=== PATIENT | female | born 1975 | race Caucasian/White ===

== ENCOUNTER 2019-12-06 13:13 | Outpatient (REF) | payer OTHER, SELFPAY ==
[2019-12-07 08:56] LABS: CT PCR NOT DETECTED (Not Detect.); NG PCR NOT DETECTED (Not Detect.)
[2019-12-11 20:11] LABS: HPV mRNA E6/E7 Not Detected (Not Detected)
== END 2019-12-06 13:14 | disposition home or self-care (01) ==
LOC: HO.LNP 13:13
PROVIDERS: Visit Provider Obstetrics & Gynecology
DX: Z01.419 Encounter for gynecological examination (general) (routine) without abnormal findings (principal); Z11.51 Encounter for screening for human papillomavirus (HPV); Z11.3 Encounter for screening for infections with a predominantly sexual mode of transmission; N92.1 Excessive and frequent menstruation with irregular cycle
CPT/HCPCS: 87491; 87591; 87624; 87625; 88142

== ENCOUNTER 2019-12-31 16:18 | Outpatient (REF) | payer OTHER, SELFPAY | END 2019-12-31 16:19 | disposition home or self-care (01) | LOC: HO.LAB 16:18 | PROVIDERS: Visit Provider Internal Medicine | DX: Z20.828 Contact with and (suspected) exposure to other viral communicable diseases (principal) | CPT/HCPCS: C9803; U0003 ==

== ENCOUNTER → 2020-06-16 08:36 | Outpatient (BNVA) | payer OTHER, SELFPAY | PROVIDERS: PCP Hospitalist; Visit Provider Nurse Practitioner ==

== ENCOUNTER 2020-06-23 09:26 | Outpatient (REF) | payer OTHER, SELFPAY ==
[2020-06-23 11:41] LABS: Hematocrit 32.8 % (37-47); Hemoglobin 10.1 g/dl (12.0-16.0); Mean Corpuscular HGB Conc 30.8 g/dl (31.0-35.0); Mean Corpuscular Hemoglobin 24.2 pg (27.0-33.0); Mean Corpuscular Volume 78.7 fL (80-98); Mean Platelet Volume 11.5 fL (9.4-12.3); Platelet Count 265 X10*3/uL (160-400); Red Blood Count 4.17 X10*6/uL (4.20-5.50); Red Cell Distribution Width 19.8 % (11.0-16.0); White Blood Count 8.4 X10*3/uL (4.8-10.8)
[2020-06-23 12:25] LABS: HCG Quantitative < 2 mIU/mL; TSH reflex Free T4 0.46 uIU/mL (0.32-4.0)
[2020-06-24 06:01] LABS: CT PCR NOT DETECTED (Not Detect.); NG PCR NOT DETECTED (Not Detect.)
== END 2020-06-23 09:27 | disposition home or self-care (01) ==
LOC: HO.LAB 09:26
PROVIDERS: PCP Hospitalist; Visit Provider Obstetrics & Gynecology
DX: N92.1 Excessive and frequent menstruation with irregular cycle (principal); J30.1 Allergic rhinitis due to pollen; F17.210 Nicotine dependence, cigarettes, uncomplicated
CPT/HCPCS: 36415; 58100; 84443; 84702; 85027; 87491; 87591; 88305

== ENCOUNTER 2020-06-26 15:51 | Outpatient (REF) | payer OTHER, SELFPAY ==
[2020-06-26 17:30] LABS: Glucose Urine UA NEG (NEG); Leukocyte Esterase Urine NEG (NEG); Nitrite Urine NEG (NEG); Urine Blood NEG (NEG); Urine Ketones NEG (NEG); Urine Protein NEG (NEG-TRACE)
[2020-06-26 17:32] LABS: Appearance Urine CLEAR; Color Urine YELLOW
== END 2020-06-26 15:52 | disposition home or self-care (01) ==
LOC: HO.LAB 15:51
PROVIDERS: PCP Hospitalist; Visit Provider Family Medicine
DX: R30.0 Dysuria (principal)
CPT/HCPCS: 81003

== ENCOUNTER 2020-07-02 15:18 | Outpatient (REF) | payer OTHER, SELFPAY ==
--- NOTE | ~2020-07-02 | US_ITS ---
EXAMINATION: PELVIC ULTRASOUND CLINICAL INFORMATION: Excessive and frequent menstruation. Post endometrial biopsy 06/23/2020. COMPARISON: Previous pelvic ultrasound report January 2013. TECHNIQUE: Transabdominal and transvaginal pelvic ultrasound. Transvaginal exam was performed for better visualization of the uterus and ovaries. FINDINGS: The uterus is anteverted, enlarged and measures 13.1 x 8.7 x 10.3 cm in dimension. There is an 8.4 x 7.8 x 7 cm slightly hyperechoic area in the right upper uterine body. This obscures the endometrium. This has several small cystic areas. Adenomyosis, submucosal uterine fibroid and endometrial thickening should be considered. There is a small 9 x 7 x 10 mm hypoechoic lesion in the anterior uterine body suggestive of a small fibroid. The endometrium is not well visualized. The cervix is normal appearing. The right ovary is not seen. The left ovary is seen transabdominally only and is enlarged measuring 5.1 x 3.7 x 3.6 cm. There are 2 left ovarian cysts measuring 3.1 x 2.7 x 3.2 cm and 2.3 x 2.2 x 2.1 cm. There is no fluid in the pelvis. US/US transvaginal IMPRESSION: Enlarged uterus. Large hyperechoic area with small cysts centrally in the right side of the uterus. The endometrium is not well visualized. Differential would include adenomyosis, submucosal uterine fibroid and endometrial thickening. This could be better evaluated with pelvic MRI if clinically indicated. Small anterior uterine body fibroid. Right ovary not seen. Slightly enlarged left ovary with 2 cysts, largest measuring 3 cm.
--- NOTE | ~2020-07-02 | US_ITS ---
EXAMINATION: PELVIC ULTRASOUND CLINICAL INFORMATION: Excessive and frequent menstruation. Post endometrial biopsy 06/23/2020. COMPARISON: Previous pelvic ultrasound report January 2013. TECHNIQUE: Transabdominal and transvaginal pelvic ultrasound. Transvaginal exam was performed for better visualization of the uterus and ovaries. FINDINGS: The uterus is anteverted, enlarged and measures 13.1 x 8.7 x 10.3 cm in dimension. There is an 8.4 x 7.8 x 7 cm slightly hyperechoic area in the right upper uterine body. This obscures the endometrium. This has several small cystic areas. Adenomyosis, submucosal uterine fibroid and endometrial thickening should be considered. There is a small 9 x 7 x 10 mm hypoechoic lesion in the anterior uterine body suggestive of a small fibroid. The endometrium is not well visualized. The cervix is normal appearing. The right ovary is not seen. The left ovary is seen transabdominally only and is enlarged measuring 5.1 x 3.7 x 3.6 cm. There are 2 left ovarian cysts measuring 3.1 x 2.7 x 3.2 cm and 2.3 x 2.2 x 2.1 cm. There is no fluid in the pelvis. US/US pelvic complete IMPRESSION: Enlarged uterus. Large hyperechoic area with small cysts centrally in the right side of the uterus. The endometrium is not well visualized. Differential would include adenomyosis, submucosal uterine fibroid and endometrial thickening. This could be better evaluated with pelvic MRI if clinically indicated. Small anterior uterine body fibroid. Right ovary not seen. Slightly enlarged left ovary with 2 cysts, largest measuring 3 cm.
== END 2020-07-02 15:19 | disposition home or self-care (01) ==
LOC: HO.US 15:18
PROVIDERS: Visit Provider Obstetrics & Gynecology
DX: N92.1 Excessive and frequent menstruation with irregular cycle (principal)
CPT/HCPCS: 76830; 76856

== ENCOUNTER → 2020-07-07 13:56 | Outpatient (BNVA) | payer OTHER, SELFPAY | PROVIDERS: Visit Provider Obstetrics & Gynecology ==

== ENCOUNTER 2020-07-08 11:00 | Outpatient (REF) | payer OTHER, SELFPAY ==
[2020-07-09 12:06] LABS: CT PCR NOT DETECTED (Not Detect.); NG PCR NOT DETECTED (Not Detect.)
== END 2020-07-08 11:01 | disposition home or self-care (01) ==
LOC: HO.LAB 11:00
PROVIDERS: Visit Provider Obstetrics & Gynecology
DX: N71.9 Inflammatory disease of uterus, unspecified (principal); R10.2 Pelvic and perineal pain; F17.210 Nicotine dependence, cigarettes, uncomplicated; J30.1 Allergic rhinitis due to pollen; Z98.51 Tubal ligation status
CPT/HCPCS: 87491; 87591; 99212

== ENCOUNTER 2020-07-10 16:40 | Outpatient (REF) | payer OTHER, SELFPAY | END 2020-07-10 16:41 | disposition home or self-care (01) | LOC: HO.LAB 16:40 | PROVIDERS: PCP Hospitalist; Visit Provider Obstetrics & Gynecology | DX: N30.90 Cystitis, unspecified without hematuria (principal) | CPT/HCPCS: 87086 ==

== ENCOUNTER → 2020-07-15 13:57 | Outpatient (BNVA) | payer OTHER, SELFPAY | PROVIDERS: Visit Provider Obstetrics & Gynecology | DX: N30.90 Cystitis, unspecified without hematuria (principal); N71.9 Inflammatory disease of uterus, unspecified | CPT/HCPCS: 99212 ==

== ENCOUNTER 2020-08-21 16:23 | Outpatient (REF) | payer OTHER, SELFPAY ==
--- NOTE | ~2020-08-21 | MM_ITS ---
EXAMINATION: MM BREAST SCREENING DIGITAL TOMOSYNTHESIS, BILATERAL CLINICAL INFORMATION: Screening. Asymptomatic. The lifetime risk of breast cancer based on the Tyrer-Cuzick Model is 13.8%. COMPARISON: Mammography: None TECHNIQUE: Digital breast tomosynthesis is performed in both the craniocaudal and mediolateral oblique views along with computer-aided detection (CAD). Synthesized 2D images are generated from the tomosynthesis. FINDINGS: There are scattered areas of fibroglandular density (ACR BI-RADS breast composition Category b). About the deep medial aspect of the right breast, there is an irregularly marginated density measuring approximately 8 x 4 mm in size and lying approximately 10 cm from the nipple. About the superior retroareolar region of the right breast, there is a 9 mm partially circumscribed density containing a few calcifications. No left breast abnormality is appreciated. MM/MM tomosynthesis screening BI IMPRESSION: There are 2 right breast densities as described for which spot compression views and possible ultrasound is recommended. Spot magnification films in craniocaudal and 90 degree mediolateral views of the calcifications of the more anterior lesion suggested. ASSESSMENT: BI-RADS 0: Incomplete - Need Additional Imaging Evaluation RECOMMENDATION: 1. Additional views of the right breast 2. Targeted ultrasound if warranted after review of the additional views. 3. Radiology department staff will contact the patient for additional imaging. This patient's information was entered into a reminder system with a target due date for their next mammogram.
== END 2020-08-21 16:24 | disposition home or self-care (01) ==
LOC: HO.MAMMO 16:23
PROVIDERS: Visit Provider Obstetrics & Gynecology
DX: Z12.31 Encounter for screening mammogram for malignant neoplasm of breast (principal)
CPT/HCPCS: 77063; 77067

== ENCOUNTER 2020-09-11 14:00 | Outpatient (REF) | payer OTHER, SELFPAY ==
--- NOTE | ~2020-09-11 | MM_ITS ---
EXAMINATION: MM DIAGNOSTIC DIGITAL BREAST TOMOSYNTHESIS, RIGHT CLINICAL INFORMATION: Recall from baseline mammography for 2 findings right breast: Asymmetric density posterior medial quadrant and fine calcifications anterior upper breast. Prior history bilateral reduction mammoplasty over 15 years ago. COMPARISON: Mammography: 08/21/2020 TECHNIQUE: Digital breast tomosynthesis is performed. 2D images are generated from the tomosynthesis. The following views are obtained: Magnification CC and ML x3; rolled right CC and spot right CC views. FINDINGS: There are scattered areas of fibroglandular density (ACR BI-RADS breast composition Category b). The additional views show scattered calcifications in the right breast likely related to the reduction mammoplasty. There are fine grouped calcifications anterior central breast on the magnification CC view without correlate demonstrated on the MLO views. The asymmetric density posterior medial breast is less conspicuous. No spiculation. Results are discussed with the patient at time of visit. Findings are probably benign. Diagnostic right mammography is recommended in 6 months for both areas of recall and to include magnification views. MM/MM tomosynthesis added views R IMPRESSION: Probable benign findings right breast, possibly related to remote prior mammoplasty. ASSESSMENT: BI-RADS 3: Probably Benign RECOMMENDATION: Diagnostic right mammography in 6 months. This patient's information was entered into a reminder system with a target due date for their next mammogram.
== END 2020-09-11 14:01 | disposition home or self-care (01) ==
LOC: HO.MAMMO 14:00
PROVIDERS: Visit Provider Obstetrics & Gynecology
DX: R92.2 Inconclusive mammogram (principal)
CPT/HCPCS: 77061; 77065

== ENCOUNTER → 2020-10-06 12:05 | Outpatient (BNVA) | payer OTHER, SELFPAY | PROVIDERS: PCP Physician Assistant; Visit Provider Obstetrics & Gynecology ==

== ENCOUNTER → 2020-10-20 12:55 | Outpatient (BNVA) | payer OTHER, SELFPAY | PROVIDERS: Visit Provider Obstetrics & Gynecology | DX: N92.1 Excessive and frequent menstruation with irregular cycle (principal) | CPT/HCPCS: 99212 ==

== ENCOUNTER 2020-10-24 06:01 | Day surgery (SDC) | payer OTHER, SELFPAY ==
--- NOTE | 2020-10-23 08:49 | HO.ANESPROP2 ---
Documented by User: Sara Heredia NP 10/23/20 08:50 HPI - Anesthesia Eval Consult details Narrative: 45yo F for ?Uterine Ablation w/Novasure PMFSH Active Problems Active Problems: All Active Problems (Updated 07/15/20 @ 16:08 by Torsten Yin MD) Cystitis (Acute) Endometritis (Acute) Pelvic pain (Acute) Abdominal bloating (Acute) Constipation (Acute) Seasonal allergies (Acute) Mild persistent asthma, uncomplicated (Acute) GERD without esophagitis (Acute) Menometrorrhagia (Acute) Well woman exam (Acute) Migraine with aura (Acute) Past Medical History Medical History Asthma Depression H/O one miscarriage Helicobacter pylori (H. pylori) HTN (hypertension) Pre-diabetes Precancerous changes of the cervix Family History Family History Father Schizophrenia Chronic mental illness HTN (hypertension) Mother Alcoholic Maternal Aunt Uterine cancer Sister Depression Surgical History Surgical History History of bilateral tubal ligation History of tonsillectomy Hx of bilateral breast reduction surgery Social History Social History Alcohol intake: never Patient Tobacco Use Status: Current everyday Tobacco user Cigarette Packs Per Day: 1 Use of substances other than those prescribed or required for medical reasons: No Have you been hit, kicked, punched, or otherwise hurt by someone within the past year? If so, by whom?: No Are you DNR?: No Advance Directives: No Advance Directives Information Provided: Yes Sexual orientation: Straight/Heterosexual Gender identity: Female Meds Allergies Allergy/AdvReac Type Severity Reaction Status Date / Time pollen extracts [POLLEN] Allergy Mild ITCHY EYES Verified 07/08/20 11:13 GRASS Allergy Mild ITCHY EYES Uncoded 01/29/20 15:48 Home Medications Medication Instructions Recorded Confirmed Last Taken Type clonazepam 0.5 mg tablet 0.5 mg PO BID 12/06/19 Unknown History clonidine HCl 0.1 mg tablet 0.3 mg PO BEDTIME 12/06/19 Unknown History duloxetine 60 mg capsule,delayed 60 mg PO DAILY 12/06/19 Unknown History release fluconazole 150 mg tablet mg PO 12/06/19 Unknown History gabapentin 300 mg capsule 0 mg PO 12/06/19 Unknown History gabapentin 600 mg tablet 600 mg PO TID 12/06/19 Unknown History quetiapine 25 mg tablet mg PO 12/06/19 Unknown History cimetidine 400 mg tablet 400 mg PO BEDTIME 06/16/20 Unknown History trazodone 50 mg tablet 50 mg PO BEDTIME 06/16/20 Unknown History Exam Exam Date and Time: October 23, 2020 0849 Assessment and Plan Assessment Anesthesia Assessment: Chart Reviewed Documented by User: Linda Kim MD 10/24/20 07:18 PMFSH Active Problems Active Problems: All Active Problems (Updated 07/15/20 @ 16:08 by Torsten Yin MD) Cystitis (Acute) Endometritis (Acute) Pelvic pain (Acute) Abdominal bloating (Acute) Constipation (Acute) Seasonal allergies (Acute) Mild persistent asthma, uncomplicated (Acute) GERD without esophagitis (Acute) Menometrorrhagia (Acute) Well woman exam (Acute) Migraine with aura (Acute) Morbid Obesity. Snores but denies h/o RICHAR Past Medical History Medical History Asthma Depression H/O one miscarriage Helicobacter pylori (H. pylori) HTN (hypertension) Pre-diabetes Precancerous changes of the cervix Family History Family History Father Schizophrenia Chronic mental illness HTN (hypertension) Mother Alcoholic Maternal Aunt Uterine cancer Sister Depression Family history of problems with anesthesia: No Surgical History Surgical History History of bilateral tubal ligation History of tonsillectomy Hx of bilateral breast reduction surgery History of Problems with Anesthesia: Yes (Post-op urinary retention) Social History Social History Alcohol intake: never Patient Tobacco Use Status: Current everyday Tobacco user Cigarette Packs Per Day: 1 Use of substances other than those prescribed or required for medical reasons: No Have you been hit, kicked, punched, or otherwise hurt by someone within the past year? If so, by whom?: No Are you DNR?: No Advance Directives: No Advance Directives Information Provided: Yes Sexual orientation: Straight/Heterosexual Gender identity: Female Meds Allergies Allergy/AdvReac Type Severity Reaction Status Date / Time pollen extracts [POLLEN] Allergy Mild ITCHY EYES Verified 07/08/20 11:13 GRASS Allergy Mild ITCHY EYES Uncoded 01/29/20 15:48 Home Medications Medication Instructions Recorded Confirmed Last Taken Type clonazepam 0.5 mg tablet 0.5 mg PO BID 12/06/19 Unknown History clonidine HCl 0.1 mg tablet 0.3 mg PO BEDTIME 12/06/19 Unknown History duloxetine 60 mg capsule,delayed 60 mg PO DAILY 12/06/19 Unknown History release fluconazole 150 mg tablet mg PO 12/06/19 Unknown History gabapentin 300 mg capsule 0 mg PO 12/06/19 Unknown History gabapentin 600 mg tablet 600 mg PO TID 12/06/19 Unknown History quetiapine 25 mg tablet mg PO 12/06/19 Unknown History cimetidine 400 mg tablet 400 mg PO BEDTIME 06/16/20 Unknown History trazodone 50 mg tablet 50 mg PO BEDTIME 06/16/20 Unknown History Exam Height,Weight and Vital Signs: Height 5 ft 2 in Weight 111.13 kg Vital Signs Temp Pulse Resp BP Pulse Ox 10/24/20 06:21 96.8 F 83 18 122/68 99 Pertinent Lab Results Pertinent Lab Results: Lab Results 10/24/20 Range/Units 06:10 Urine Test NEGATIVE (NEGATIVE) Airway Mallampati Class: III TM Dist: >3cm Neck ROM: Full Loose/Missing/Broken Teeth: Yes (Missing molar) Heart: RRR Lungs: CTAB Assessment and Plan Assessment Anesthesia Assessment: Anesthesia Plan Discussed Final Anesthetic Review Family History of Problems with Anesthesia: No History of Problems with Anesthesia: Yes (Post-op urinary retention) NPO: Yes ASA Class: III Final Preanesthetic Review: No Changes in Pt Med Stat, Meds/Allgs Chart Reviewed, Consent Obtained/Reviewed and Anes Risks/Benef Reviewed Patient Risk: Intermediate Procedure Risk: Low Assessment/Block/Sedation in SS: Assess/Block/Sedation-SS Anesthetic Plan Anesthetic Plan: GA Disposition: Standard PACU
[2020-10-24] VITALS (9 sets, daily range): BP systolic 115–137; BP diastolic 47–80; PULSE 70–87; RESP 16–20; TEMP 36–37.1; O2SAT 98–100; BMI 44.8
[2020-10-24 06:35] LABS: UPreg QC Valid YES; Urine Pregnancy NEGATIVE (NEGATIVE)
[2020-10-24] MEDS: Lactated Ringers 1,000 ML 100 ML IVCONT (06:42)
[2020-10-24] MEDS: Famotidine/PF 20 MG/2 ML VIAL IVPUSH (07:20)
[2020-10-24] MEDS: Metoclopramide HCl 10 MG/2 ML VIAL IVPUSH (07:24)
--- NOTE | 2020-10-24 07:37 | MHC.SHP ---
Pre-Procedural Eval Section A Date of Service: 10/24/20 The patient is an INPATIENT: No Changes since office visit: No Cold of Flu in the past 2 weeks, No New Medical Problems, No Changes in Medication and No Patient answered all questions The History & Physical has been completed within 30 days and I have reviewed it.: Yes Section B Chief Complaint: frequent bleeding Allergies: Allergies Allergy/AdvReac Type Severity Reaction Status Date / Time pollen extracts [POLLEN] Allergy Mild ITCHY EYES Verified 10/24/20 07:26 GRASS Allergy Mild ITCHY EYES Uncoded 10/24/20 07:26 Plan Diagnosis/Plan: Unchanged I have reviewed the history and physical and performed a pertinent physical examination on my patient. No changes have occurred unless specified.
--- NOTE | 2020-10-24 08:03 | P.BOP_ITS ---
Brief Operative Note Date of Service: 10/24/20 Pre-op diagnosis: Menometrorrhagia Post-op diagnosis: same Procedure: NovaSure Endometrial Ablation Surgeon: Torsten Yin MD Anesthesia: MAC Was an Painter Helper Spray used for this Procedure?: No Estimated blood loss (mL): 0 Pathology: none sent Condition: stable Disposition: PACU
--- NOTE | 2020-10-24 08:04 | W.PM.OPN ---
Operative Note Operative Note Date of Service: 10/24/20 Narrative: Preop diagnosis: Menorrhagia Post Op Diagnosis: Same Op: Novasure Endometrial Ablation Anesthesia: MAC Hand Filer Balance Wheel: None QBL: Minimal Pathology: None Complications: None Procedure: The patient was put in the dorsal lithotomy position. She was prepped and draped in the usual sterile manner. Bimanual exam prior to prepping revealed a mobile, anteverted uterus. A speculum was placed in the vagina and the anterior lip of the cervix was grasped with a single toothed tenaculum and brought forward. Taking care not to enter deep into the uterus, a sound was passed inside to measure the length of the uterus and cervix. This length was found to be 8 cm. Next, Hegar dilator was inserted into the cervical os to measure the cervical length which was 3 cm. This yielded an endometrial cavity length of 6.5 cm. A series of Hegar dilators were then inserted sequentially into the cervical os up to a size of 5 mm. The Novasure device was then opened and tested; the fan deployed easily. The instrument was set to the correct cavity length and introduced into the uterine cavity. The fan was slowly deployed with gentle movements to ensure a snug fit within the cavity. The cavity width read 4.5 cm. The measurements were imported and a cavity check was done. The trumpet was then slid down to the cervix and the device was activated. The total burn time was 70 seconds. The fan was retracted and device removed. The fan was examined and revealed charred tissue. The tenaculum was removed and the cervix examined for hemostasis which was achieved using pressure. Finally the speculum was removed. The patient tolerated the procedure well and was brought to the recovery room in a stable condition. At the end of the procedure all sponges and instruments were counted and correct. The blood loss was minimal and there were no complications.
[2020-10-24] MEDS: Acetaminophen 325 MG TABLET 650 MG PO (08:16)
[2020-10-24] MEDS: oxyCODONE HCl Immed Release 5 MG TABLET PO (08:17)
[2020-10-24] MEDS: fentaNYL citrate/PF 100 MCG/2 ML VIAL 25 MCG IVPUSH (08:45)
== END 2020-10-24 09:50 | disposition home or self-care (01) ==
PROVIDERS: Visit Provider Obstetrics & Gynecology
PROC: (CPT 58353; principal; 2020-10-24 07:30)
DX: N92.1 Excessive and frequent menstruation with irregular cycle (principal); R87.619 Unspecified abnormal cytological findings in specimens from cervix uteri; I10 Essential (primary) hypertension; R73.03 Prediabetes; J45.909 Unspecified asthma, uncomplicated; F32.9 Major depressive disorder, single episode, unspecified; Z79.899 Other long term (current) drug therapy; Z98.51 Tubal ligation status; Z86.19 Personal history of other infectious and parasitic diseases; F17.210 Nicotine dependence, cigarettes, uncomplicated
CPT/HCPCS: 58353; 81025; J1100; J1885; J2250; J2405; J2765; J3010

== ENCOUNTER 2020-10-27 13:33 | Emergency (ER) | payer OTHER, SELFPAY ==
[2020-10-27 14:04] VITALS: BP 116/74; PULSE 105; RESP 20; TEMP 37.1; O2SAT 99; BMI 45.7
== END 2020-10-27 16:08 | disposition left against medical advice (07) ==
PROVIDERS: Emergency Provider Emergency Medicine
DX: G89.18 Other acute postprocedural pain (principal)
CPT/HCPCS: 99281; 99282

== ENCOUNTER 2020-10-29 15:04 | Outpatient (REF) | payer OTHER, SELFPAY | END 2020-10-29 15:05 | disposition home or self-care (01) | LOC: HO.LAB 15:04 | PROVIDERS: Visit Provider Obstetrics & Gynecology | DX: N71.9 Inflammatory disease of uterus, unspecified (principal) | CPT/HCPCS: 99212 ==

== ENCOUNTER → 2020-11-07 09:08 | Outpatient (BNVA) | payer OTHER, SELFPAY | PROVIDERS: Visit Provider Nurse Practitioner ==

== ENCOUNTER → 2020-11-11 11:25 | Outpatient (BNVA) | payer OTHER, SELFPAY | PROVIDERS: Visit Provider Obstetrics & Gynecology ==

== ENCOUNTER → 2020-12-22 13:24 | Outpatient (BNVA) | payer OTHER, SELFPAY | PROVIDERS: Visit Provider Obstetrics & Gynecology ==

== ENCOUNTER 2021-04-13 13:57 | Outpatient (REF) | payer OTHER, SELFPAY ==
--- NOTE | ~2021-04-13 | MM_ITS ---
EXAMINATION: MM DIAGNOSTIC DIGITAL BREAST TOMOSYNTHESIS, RIGHT CLINICAL INFORMATION: Short interval follow-up probable benign findings right breast initially noted at baseline imaging (asymmetric density posterior medial breast and calcifications anterior upper breast). Prior history reduction mammoplasty over 15 years ago. TC score 11%. COMPARISON: Mammography: 09/11/2020, 08/21/2020 (baseline, BI-RADS 0). TECHNIQUE: Digital breast tomosynthesis is performed in both the craniocaudal and mediolateral oblique views along with computer-aided detection (CAD). Synthesized 2D images are generated from the tomosynthesis. Additional magnification right CC and magnification right ML x2 projections are obtained. FINDINGS: There are scattered areas of fibroglandular density (ACR BI-RADS breast composition Category b). Parenchymal pattern is similar to prior exam. There is no developing density or interval mass or architectural abnormality. The probable benign asymmetric density posterior medial right breast is stable. The fine calcifications anterior upper right breast are also stable. Findings are likely sequela from the remote reduction mammoplasty. Right breast will be reassessed again at time of annual bilateral exam. Results are provided to the patient at time of visit by the technologist. MM/MM tomosynthesis diagnostic RT IMPRESSION: No significant changes from prior exam. ASSESSMENT: BI-RADS 3: Probably Benign RECOMMENDATION: Diagnostic mammography at time of annual bilateral mammography, due in 6 months. This patient's information was entered into a reminder system with a target due date for their next mammogram.
== END 2021-04-13 13:58 | disposition home or self-care (01) ==
LOC: HO.MAMMO 13:57
PROVIDERS: PCP Allergy & Immunology Allergy; Visit Provider Internal Medicine
DX: R92.1 Mammographic calcification found on diagnostic imaging of breast (principal)
CPT/HCPCS: 77061; 77065

== ENCOUNTER 2021-07-15 10:03 | Emergency (ER) | payer OTHER, SELFPAY ==
[2021-07-15] VITALS (7 sets, daily range): BP systolic 128–152; BP diastolic 73–81; PULSE 65–120; RESP 17–20; TEMP 35.8–36.6; O2SAT 99–100; BMI 45.7
--- NOTE | ~2021-07-15 | CT_ITS ---
EXAMINATION: CT ABDOMEN AND PELVIS WITHOUT CONTRAST CLINICAL INFORMATION: Abdominal pain and elevated WBC count. COMPARISON: Abdominal ultrasound dated 08/03/2019; pelvic ultrasound dated 07/02/2020. TECHNIQUE: Multidetector volumetric imaging was performed from the superior aspect of the liver through the pubic symphysis. Sagittal and coronal reformatted images were obtained on the technologist's workstation. This CT examination was performed using dose optimization techniques as appropriate, variously including the following: *Automated exposure control *Adjustment of mA and/or kV according to patient size (this includes techniques or standardized protocols for targeted exams where dose is matched to indication/reason for exam; i.e. extremities or head) *Use of iterative reconstruction technique DLP: 845 mGy-cm FINDINGS: LUNG BASES: The visualized lung bases are unremarkable. LIVER, GALLBLADDER, AND BILIARY TREE: The liver is normal in size, shape, and attenuation. No focal hepatic lesion or biliary ductal dilatation is present. The gallbladder is unremarkable with no evidence of radiopaque gallstones, gallbladder wall thickening, or obvious pericholecystic inflammatory changes. PANCREAS: Unremarkable. SPLEEN: Unremarkable. ADRENAL GLANDS: The right adrenal gland is unremarkable. There is mild hypertrophy of the left adrenal gland, without focal nodule identified. KIDNEYS AND URETERS: The kidneys are normal in size, shape, and attenuation. No hydronephrosis, hydroureter, or calculi seen. No perinephric stranding. BLADDER: Decompressed and otherwise unremarkable. GASTROINTESTINAL TRACT: No bowel obstruction, free intraperitoneal air or abscess is seen. There is no focal bowel wall thickening. There is minimal diverticulosis, without acute diverticulitis. The vermiform appendix is unremarkable. ABDOMINAL WALL: There is a tiny, fat-containing umbilical hernia. LYMPH NODES: There are shotty, nonpathologically enlarged para-aortic, bilateral iliac chain and inguinal lymph nodes, with the largest situated within the left external iliac chain lymph node having a short axis diameter of 9 mm (3:67). No sizable abdominopelvic lymphadenopathy is seen. VASCULAR: Unremarkable. PELVIC VISCERA: The uterus shows a bulky, fibroid appearance, consistent with prior ultrasound findings. Tubal ligation clips are noted. There is no adnexal mass. OSSEOUS STRUCTURES: There is multi-focal mild lower thoracic and lumbar spondylosis. No acute or aggressive osseous abnormality is seen. CT/CT abdomen pelvis wo con IMPRESSION: 1. No bowel obstruction, free intraperitoneal air or abscess is seen. There is minimal diverticulosis, without acute diverticulitis. The vermiform appendix appears normal. 2. No urinary calculus or obstructive uropathy is seen bilaterally. 3. No abdominopelvic mass, free fluid or lymphadenopathy is seen. 4. The uterus again shows an enlarged, fibroid appearance. 5. No acute or aggressive osseous lesion is seen. Fleischner guidelines were followed.
[2021-07-15 11:13] LABS: MANUAL DIFF FLAG NO
[2021-07-15 11:14] LABS: Basophils Absolute Auto 0.1 X10*3/uL (0.0-0.2); Basophils Percent Auto 0.5 % (0-2); Eosinophils Percent Auto 0.1 % (0-4); Hematocrit 32.6 % (37.0-47.0); Imm Gran Abs Auto 0.06 X10*3/uL (0.00-0.03); Imm Gran Pct Auto 0.3 % (0.0-0.4); Lymphocytes Percent Auto 5.9 % (20-40); Mean Corpuscular HGB Conc 30.7 g/dl (31.0-35.0); Mean Corpuscular Hemoglobin 22.5 pg (27.0-33.0); Mean Corpuscular Volume 73.4 fL (80.0-98.0); Mean Platelet Volume 10.7 fL (9.4-12.3); Monocytes Absolute Auto 0.8 X10*3/uL (0.1-1.2); Monocytes Percent Auto 4.7 % (2-11); Neutrophils Absolute Auto 15.3 x10*3/uL (2.0-8.3); Neutrophils Percent Auto 88.5 % (45-73); Platelet Count 417 X10*3/uL (160-400); Red Blood Count 4.44 X10*6/uL (4.20-5.50); Red Cell Distribution Width 17.8 % (11.0-16.0); White Blood Count 17.3 X10*3/uL (4.8-10.8)
[2021-07-15 11:41] LABS: Alanine Aminotransferase 9 U/L (0-31); Albumin Level 4.6 g/dL (3.5-5.0); Alkaline Phosphatase 80 U/L (39-117); Anion Gap 18 (12-20); Aspartate Amino Transferase 15 U/L (5-31); Bilirubin Total 0.4 mg/dL (0.0-1.0); Blood Urea Nitrogen 8 mg/dL (9-16); Calcium 9.4 mg/dL (8.4-10.2); Carbon Dioxide 20 mmol/L (22-29); Chloride 106 mmol/L (96-108); Creatinine Clr Calc Pharmacy 104.8; Estimated Glomerular Filt Rate > 60; Glucose Random 164 mg/dL (60-115); Potassium 3.8 mmol/L (3.3-5.1); Sodium 140 mmol/L (135-145); Total Protein 8.1 g/dL (6.5-8.0)
[2021-07-15] MEDS: Ondansetron ODT 4 MG TAB.RAPDIS TRANSLINGU (19:47)
[2021-07-15] MEDS: Morphine Sulfate 4 MG/ML CARTRIDGE IM (19:47)
--- NOTE | 2021-07-15 19:51 | ED.GENADULT ---
HPI - General Adult General Chief complaint: Abdominal Pain Stated complaint: VOMITNG FOR DAYS PER EMS Time Seen by Provider: 07/15/21 19:31 Source: patient Mode of arrival: ambulatory Limitations: no limitations History of Present Illness HPI narrative: 46-year-old female with past medical history of endometriosis presents to ED for lower abdominal pain. Patient states she has endometriosis abdominal pain every time she is on mensturation. Patient states she is presently on her menstruation. Patient states he has surgery to address the endometriosis years ago but was not successful. Patient states also vomiting multiple times. Patient having symptoms for the past 3 days Related Data Home Medications Medication Instructions Recorded Confirmed clonazepam 0.5 mg tablet 0.5 mg PO BID 12/06/19 04/06/21 clonidine HCl 0.1 mg tablet 0.3 mg PO BEDTIME 12/06/19 04/06/21 duloxetine 60 mg capsule,delayed 60 mg PO DAILY 12/06/19 04/06/21 release gabapentin 600 mg tablet 600 mg PO TID 12/06/19 04/06/21 cimetidine 400 mg tablet 400 mg PO BEDTIME 06/16/20 04/06/21 fluticasone propionate 110 1 puff INHALATION BID g 04/06/21 04/06/21 mcg/actuation HFA aerosol inhaler (Flovent HFA) Previous Rx's Medication Instructions Recorded albuterol sulfate 2.5 mg (3 mL) INHALATION Q4H PRN 03/18/20 90 Days #180 ml albuterol sulfate 90 mcg/actuation 1 puff INHALATION Q4H PRN #8.5 ea 04/06/21 aerosol inhaler (ProAir HFA) amoxicillin 500 mg-potassium 1 tab PO Q12H 7 Days #14 tab 04/06/21 clavulanate 125 mg tablet (Augmentin) fexofenadine 180 mg tablet 180 mg PO DAILY 90 Days #90 tab 04/06/21 ([place] Allergy) fluconazole 150 mg tablet 150 mg PO ONCE #1 tab 04/06/21 montelukast 10 mg tablet 10 mg PO DAILY 90 Days #90 tab 04/06/21 [id number] 3.5 4 drp OTIC (EAR) LEFT Q8H 10 Days 04/06/21 mg/mL-10,000 unit/mL-1 % ear #10 ml solution naproxen 500 mg tablet 500 mg PO BID PRN 10 Days #20 tab 07/15/21 ondansetron 4 mg disintegrating 4 mg PO Q6H PRN 4 Days #12 tab 07/15/21 tablet Allergies Allergy/AdvReac Type Severity Reaction Status Date / Time pollen extracts [POLLEN] Allergy Mild ITCHY EYES Verified 07/15/21 10:55 GRASS Allergy Mild ITCHY EYES Uncoded 04/06/21 13:43 Review of Systems Review of Systems: Bilateral lower abdominal suprapubic pain. Yes all other systems are reviewed and are negative [facility] Past Medical History Medical History (Updated 07/16/21 @ 00:02 by Gentry Rajan) Depression H/O one miscarriage Helicobacter pylori (H. pylori) HTN (hypertension) Hx of endometriosis Pelvic pain Pre-diabetes Precancerous changes of the cervix Surgical History History of bilateral tubal ligation History of tonsillectomy Hx of bilateral breast reduction surgery Hx of colonoscopy Family History Family History Father Schizophrenia Chronic mental illness HTN (hypertension) Mother Alcoholic Maternal Aunt Uterine cancer Breast cancer Sister Depression Brother No problems noted. Brother No problems noted. Brother No problems noted. Son No problems noted. Paternal Aunt Breast cancer Social History Social History Housing: Apartment Alcohol intake: never Patient Tobacco Use Status: Current everyday Tobacco user Tobacco use type: Cigarette Cigarette Packs Per Day: 1 e-Cigarette/Vaping Use: Never Used Second Hand Smoke Exposure: No Advance Directives: No Advance Directives Information Provided: Yes service: No Current occupational status: disabled Sexual orientation: Straight/Heterosexual Gender identity: Female Physical Exam ED Vital Signs: Vital Signs - 24 hr 07/15/21 10:56 07/15/21 17:33 07/15/21 19:04 Temperature 96.7 F L 96.5 F L 97.8 F Pulse Rate 65 120 H 73 Respiratory Rate 20 18 Blood Pressure 152/78 H 130/79 148/81 H Pulse Oximetry 99 99 100 07/15/21 19:47 07/15/21 21:04 07/15/21 22:45 Temperature 97.5 F Pulse Rate 96 Respiratory Rate 18 17 Blood Pressure 128/73 Pulse Oximetry 99 BMI result Body Mass Index 45.7 Const General: cooperative, healthy appearing, comfortable, no acute distress, well developed, alert, awake and Physically active Orientation/consciousness: oriented to time and patient oriented x3 [facility] Head: Yes normal to inspection, Yes No palpable skull fracture present, Yes normocephalic, Yes atraumatic and No abrasion Eyes General: appearance normal, both eyes and all related structures Neck Neck: Yes normal visual inspection, Yes full ROM, Yes no lymphadenopathy, Yes no meningeal signs, Yes trachea midline, Yes supple, No anterior neck swelling and No tender Chest Chest palpation & inspection: normal inspection of the chest and normal palpation of entire chest wall Resp Effort & Inspection: normal respiratory effort and able to speak in complete sentences Auscultation: clear to auscultation bilaterally Cardio Jugular venous distension: no JVD Heart sounds: S1 normal heart sound present and S2 normal heart sound present GI Inspection: Yes normal to inspection and No abdominal wall ecchymosis Palpation (GI): Soft to palpation, not firm, Tenderness to palpation present (GI) in the LLQ, in the RLQ and suprapubicly, no guarding and not rigid General: No CVA tenderness and Yes no CVA tenderness Back/Spine/Pelvis Back: no CVA tenderness, No CVA tenderness and No back tenderness Skin General skin exam: no rashes or lesions noted and elasticity normal Neuro General: oriented to time, patient oriented x3, gait normal, no meningeal signs and CN's II-XI intact bilaterally Cranial nerves: Yes CN's II-XII intact bilaterally Extrem General: Yes normal to inspection, Yes full ROM and Yes capillary refill normal Psych Appearance: grossly normal, well kempt and not disheveled Course Course Course Narrative: Patient in distress patient states she is not not sexually active. Labs ordered. Awaiting urine . Morphine and Zofran ordered. Reevaluation(s) Reevaluation #1: White blood cell count [id number] patient [address] for dry [address] scan. Time: 20:00 Reevaluation #2: Abdominal CT scan came back normal and UA negative for UTI. Blood in UA due to being on menstruation. patient states she is not sexually active. patient given benadryl for allergic reaction to morphine. Elevated WBC from vomitting. Not suspectving tubovarian abscess/Torsion/PID. Time: 10:49 Medical Decision Making MDM Narrative Medical decision making narrative: Endometriosis, Abdominal pain Lab Data Result diagrams: 07/15/21 11:07 07/15/21 11:07 Labs: Lab Results 07/15/21 07/15/21 07/15/21 Range/Units 11:07 11:07 20:54 WBC 17.3 H (4.8-10.8) X10*3/uL RBC 4.44 (4.20-5.50) X10*6/uL Hgb 10.0 L (12.0-16.0) g/dl Hct 32.6 L (37.0-47.0) % MCV 73.4 L (80.0-98.0) fL MCH 22.5 L (27.0-33.0) pg MCHC 30.7 L (31.0-35.0) g/dl RDW 17.8 H (11.0-16.0) % Plt Count 417 H (160-400) X10*3/uL MPV 10.7 (9.4-12.3) fL Immature Gran % (Auto) 0.3 (0.0-0.4) % Neut % (Auto) 88.5 H (45-73) % Lymph % (Auto) 5.9 L (20-40) % [place] % (Auto) 4.7 (2-11) % Eos % (Auto) 0.1 (0-4) % Baso % (Auto) 0.5 (0-2) % Lymph # (Auto) 1.0 L (1.2-4.9) X10*3/uL [place] # (Auto) 0.8 (0.1-1.2) X10*3/uL Eos # (Auto) 0.0 (0.0-0.4) X10*3/uL Baso # (Auto) 0.1 (0.0-0.2) X10*3/uL Abs Immat Gran (auto) 0.06 H (0.00-0.03) X10*3/uL Absolute Neuts (auto) 15.3 H (2.0-8.3) x10*3/uL Absolute Nucleated RBC 0.000 (0.0-0.012) X10*3/uL Nucleated RBC % (auto) 0.0 (0.0-0.2) /100WBC Sodium 140 (135-145) mmol/L Potassium 3.8 (3.3-5.1) mmol/L Chloride 106 (96-108) mmol/L Carbon Dioxide 20 L (22-29) mmol/L Anion Gap 18 (12-20) BUN 8 L (9-16) mg/dL Creatinine 0.79 (0.5-1.4) mg/dL Estim Creat Clear Calc 104.8 Estimated GFR > 60 Random Glucose 164 H (60-115) mg/dL Calcium 9.4 (8.4-10.2) mg/dL Total Bilirubin 0.4 (0.0-1.0) mg/dL AST 15 (5-31) U/L ALT 9 (0-31) U/L Alkaline Phosphatase 80 (39-117) U/L Total Protein 8.1 H (6.5-8.0) g/dL Albumin 4.6 (3.5-5.0) g/dL Beta HCG, Quant < 2 mIU/mL Urine Color YELLOW Urine Appearance CLOUDY Urine pH 6.0 (5.0-8.0) Ur Specific [place] >= 1.030 H (1.005-1.025) Urine Protein 2+ H (NEG-TRACE) MG/DL Urine Glucose (UA) NEG (NEG) MG/DL Urine Ketones 40 (NEG) MG/DL Urine Blood 3+ H (NEG) Urine Nitrite NEG (NEG) Ur Leukocyte Esterase NEG (NEG) Urine RBC 30-49 H (0) /HPF Urine WBC 1-4 (0-4) /HPF Ur Squamous Epith Cells TRACE /LPF Urine Bacteria TRACE /LPF Urine Mucus TRACE /LPF Discharge Plan Discharge Clinical Impression: Endometriosis, Abdominal pain Patient Disposition: Home, Self-Care Instructions: Endometriosis (ED), Abdominal Pain (ED) Additional Instructions: Abdominal CT scan came back normal. please follow up with your PCP and OBGYN. Return to the ED for any immediatley for any worsening abdominal pain, flank pain, fever, chills, nausea, emesis, dysuria, hematuria, or any other concerning symptoms. Prescriptions: New naproxen 500 mg tablet 500 mg PO BID PRN (Reason: pain) 10 Days Qty: 20 0RF ondansetron 4 mg tablet,disintegrating 4 mg PO Q6H PRN (Reason: nausea and vomiting) 4 Days Qty: 12 0RF No Action albuterol sulfate 2.5 mg /3 mL (0.083 %) solution for nebulization 2.5 mg inhalation Q4H PRN (Reason: shortness of breath or wheezing) 90 Days Qty: 180 1RF Flovent HFA 110 mcg/actuation HFA aerosol inhaler 1 puff inhalation BID 0RF [id number] 3.5-10,000-1 mg/mL-unit/mL-% solution 4 drp otic (ear) left Q8H 10 Days Qty: 10 0RF amoxicillin-pot clavulanate [Augmentin] 500-125 mg tablet 1 tab PO Q12H 7 Days Qty: 14 0RF fluconazole 150 mg tablet 150 mg PO ONCE Qty: 1 0RF fexofenadine [[place] Allergy] 180 mg tablet 180 mg PO DAILY 90 Days Qty: 90 3RF albuterol sulfate [ProAir HFA] 90 mcg/actuation HFA aerosol inhaler 1 puff inhalation Q4H PRN (Reason: for wheezing) Qty: 8.5 0RF montelukast 10 mg tablet 10 mg PO DAILY 90 Days Qty: 90 1RF gabapentin 600 mg tablet 600 mg PO TID 0RF clonazepam 0.5 mg tablet 0.5 mg PO BID 0RF clonidine HCl 0.1 mg tablet 0.3 mg PO BEDTIME 0RF duloxetine 60 mg capsule,delayed release(DR/EC) 60 mg PO DAILY 0RF cimetidine 400 mg tablet 400 mg PO BEDTIME 0RF Stand Alone Forms: Work/School Release Interventions: ED Discharge Assessment Last Done: 07/15/21 23:08 Discharge Date/Time: 07/15/21 23:12 Print Language: Tajik
[2021-07-15 20:13] LABS: HCG Quantitative < 2 mIU/mL
[2021-07-15 21:04] LABS: Appearance Urine CLOUDY; Color Urine YELLOW; Glucose Urine UA NEG (NEG); Leukocyte Esterase Urine NEG (NEG); Nitrite Urine NEG (NEG); Specific Gravity - Urine >= 1.030 (1.005-1.025); UACC Culture Trigger NO; Urine Blood 3+ (NEG); Urine Ketones 40 MG/DL (NEG); Urine Protein 2+ MG/DL (NEG-TRACE)
[2021-07-15 21:18] LABS: RBC Urine 30-49 /HPF (0)
[2021-07-15 21:19] LABS: Bacteria Urine TRACE /LPF; Mucus Urine TRACE /LPF; Squamous Epithelial Cell Urine TRACE /LPF
[2021-07-15] MEDS: Metoclopramide HCl 10 MG TABLET PO (22:39)
[2021-07-15] MEDS: predniSONE 20 MG TABLET 60 MG PO (22:40)
[2021-07-15] MEDS: diphenhydrAMINE HCL 25 MG TABLET 50 MG PO (22:40)
== END 2021-07-15 23:12 | disposition home or self-care (01) ==
PROVIDERS: Physician Assistant; Emergency Provider Emergency Medicine
DX: N80.9 Endometriosis, unspecified (principal); R11.10 Vomiting, unspecified; F17.210 Nicotine dependence, cigarettes, uncomplicated; Z71.6 Tobacco abuse counseling; Z79.899 Other long term (current) drug therapy
CPT/HCPCS: 36415; 74176; 80053; 81001; 84702; 85025; 96372; 99283; 99284; J2270; Q0163

== ENCOUNTER 2021-07-24 08:51 | Outpatient (REF) | payer OTHER, SELFPAY ==
[2021-07-24 10:04] LABS: MANUAL DIFF FLAG NO
[2021-07-24 10:12] LABS: Basophils Absolute Auto 0.1 X10*3/uL (0.0-0.2); Basophils Percent Auto 1.1 % (0-2); Eosinophils Absolute Auto 0.2 X10*3/uL (0.0-0.4); Hematocrit 29.6 % (37.0-47.0); Hemoglobin 8.9 g/dl (12.0-16.0); Imm Gran Abs Auto 0.03 X10*3/uL (0.00-0.03); Imm Gran Pct Auto 0.3 % (0.0-0.4); Lymphocytes Absolute Auto 2.3 X10*3/uL (1.2-4.9); Lymphocytes Percent Auto 22.4 % (20-40); Mean Corpuscular HGB Conc 30.1 g/dl (31.0-35.0); Mean Corpuscular Hemoglobin 22.4 pg (27.0-33.0); Mean Corpuscular Volume 74.4 fL (80.0-98.0); Mean Platelet Volume 9.7 fL (9.4-12.3); Monocytes Percent Auto 10.2 % (2-11); Neutrophils Absolute Auto 6.5 x10*3/uL (2.0-8.3); Platelet Count 415 X10*3/uL (160-400); Red Blood Count 3.98 X10*6/uL (4.20-5.50); Red Cell Distribution Width 17.7 % (11.0-16.0); White Blood Count 10.2 X10*3/uL (4.8-10.8)
[2021-07-24 10:54] LABS: Amylase 77 U/L (28-100); Lipase 14 U/L (8-78)
== END 2021-07-24 08:52 | disposition home or self-care (01) ==
LOC: HO.LAB 08:51
PROVIDERS: PCP Internal Medicine; Visit Provider Nurse Practitioner
DX: R11.2 Nausea with vomiting, unspecified (principal); D72.829 Elevated white blood cell count, unspecified; R10.9 Unspecified abdominal pain; K21.9 Gastro-esophageal reflux disease without esophagitis; R14.0 Abdominal distension (gaseous); J30.2 Other seasonal allergic rhinitis; K59.00 Constipation, unspecified
CPT/HCPCS: 36415; 82150; 83690; 85025; 99212

== ENCOUNTER 2021-08-03 13:07 | Outpatient (REF) | payer OTHER, SELFPAY ==
[2021-08-03 14:25] LABS: Appearance Urine CLEAR; Color Urine YELLOW; Glucose Urine UA NEG (NEG); Leukocyte Esterase Urine NEG (NEG); Nitrite Urine NEG (NEG); Specific Gravity - Urine 1.015 (1.005-1.025); Urine Blood NEG (NEG); Urine Ketones NEG (NEG); Urine Protein NEG (NEG-TRACE)
[2021-08-03 14:42] LABS: Glucose Fasting 91 mg/dL (60-99)
[2021-08-03 15:37] LABS: Glucose 1 Hour 211 mg/dL
[2021-08-03 16:14] LABS: Glucose 2 Hour 155 mg/dL
[2021-08-03 16:58] LABS: Glucose 3 Hour 73 mg/dL
== END 2021-08-03 13:08 | disposition home or self-care (01) ==
LOC: HO.LAB 13:07
PROVIDERS: PCP Internal Medicine; Visit Provider Nurse Practitioner
DX: R11.2 Nausea with vomiting, unspecified (principal); K21.9 Gastro-esophageal reflux disease without esophagitis; K59.00 Constipation, unspecified; K30 Functional dyspepsia; R30.0 Dysuria; D64.9 Anemia, unspecified; N92.1 Excessive and frequent menstruation with irregular cycle
CPT/HCPCS: 36415; 81003; 82951; 99212

== ENCOUNTER → 2021-08-18 10:12 | Outpatient (BNVA) | payer OTHER, SELFPAY | PROVIDERS: PCP Internal Medicine; Visit Provider Nurse Practitioner | DX: K30 Functional dyspepsia (principal); R11.2 Nausea with vomiting, unspecified; K21.9 Gastro-esophageal reflux disease without esophagitis; N92.1 Excessive and frequent menstruation with irregular cycle; D64.9 Anemia, unspecified; R10.9 Unspecified abdominal pain; Z98.890 Other specified postprocedural states | CPT/HCPCS: 99212 ==

== ENCOUNTER 2021-09-23 13:28 | Outpatient (REF) | payer OTHER, SELFPAY ==
--- NOTE | ~2021-09-23 | XR_ITS ---
EXAMINATION: LUMBAR SPINE AND SACRUM AND COCCYX X-RAYS CLINICAL INFORMATION: Pain COMPARISON: None TECHNIQUE: 3 views of the lumbar spine. 3 views of the sacrum and coccyx. FINDINGS: Lumbar spine: There is mild curvature of the lumbar sacral spine to the left. Bone alignment is otherwise normal. No fracture or dislocation is seen. Disc spaces are normal. Sacrum and coccyx: Bone alignment is normal. No fracture or dislocation is seen. The sacroiliac joints are normal. XR/XR lumbar spine 2-3V IMPRESSION: Mild curvature of the lumbar sacral spine to the left otherwise unremarkable exam.
--- NOTE | ~2021-09-23 | XR_ITS ---
EXAMINATION: LUMBAR SPINE AND SACRUM AND COCCYX X-RAYS CLINICAL INFORMATION: Pain COMPARISON: None TECHNIQUE: 3 views of the lumbar spine. 3 views of the sacrum and coccyx. FINDINGS: Lumbar spine: There is mild curvature of the lumbar sacral spine to the left. Bone alignment is otherwise normal. No fracture or dislocation is seen. Disc spaces are normal. Sacrum and coccyx: Bone alignment is normal. No fracture or dislocation is seen. The sacroiliac joints are normal. XR/XR sacrum coccyx min 2V IMPRESSION: Mild curvature of the lumbar sacral spine to the left otherwise unremarkable exam.
== END 2021-09-23 13:29 | disposition home or self-care (01) ==
LOC: HO.XRAY 13:28
PROVIDERS: PCP Internal Medicine; Visit Provider Internal Medicine
DX: M54.50 Low back pain, unspecified (principal); R11.2 Nausea with vomiting, unspecified; K30 Functional dyspepsia; K21.9 Gastro-esophageal reflux disease without esophagitis; K59.04 Chronic idiopathic constipation; R10.9 Unspecified abdominal pain
CPT/HCPCS: 72100; 72220; 99212

== ENCOUNTER → 2021-11-06 13:18 | Outpatient (BNVA) | payer OTHER, SELFPAY | PROVIDERS: PCP Internal Medicine; Visit Provider Nurse Practitioner | DX: R11.2 Nausea with vomiting, unspecified (principal); K30 Functional dyspepsia; K59.04 Chronic idiopathic constipation; K21.9 Gastro-esophageal reflux disease without esophagitis | CPT/HCPCS: 99212 ==

== ENCOUNTER → 2021-11-26 07:56 | Outpatient (REF) | payer OTHER, SELFPAY ==
--- NOTE | ~2021-11-26 | NM_ITS ---
EXAMINATION: OH RADIONUCLIDE SOLID FOOD GASTRIC EMPTYING 4-HOUR STUDY CLINICAL INFORMATION: Functional dyspepsia. COMPARISON: None TECHNIQUE: A standard meal consisting of 4 oz of Egg Beaters brand tagged with 1000 microcuries Tc-99m Sulfur Colloid, 8 oz water and 2 slices of toast with jelly was administered orally to the patient. Images were obtained using a dual head gamma camera in the anterior and posterior projections over of the stomach immediately post ingestion and at hourly intervals up to 4 hours post ingestion. The anterior and posterior counts at each time interval were averaged using the geometric mean and expressed as percentage of the immediate post ingestion counts. FINDINGS: There is good visualization of activity in the stomach immediately post ingestion. As the study progresses, there is good clearance of activity from the stomach and visualization of progressively increasing small bowel activity. By the end of the study, there is almost no retention noted in the stomach. Retention in the stomach at each time interval was: 1 hour 62% (normal 37%-90%) 2 hours 34% (normal 30%-60%) 3 hours 9% 4 hours radiotracer retention was not calculated since the radiotracer was almost completely emptied out from the stomach by 3 hours. OH/OH gastric emptying study IMPRESSION: Normal 4-hour solid food gastric emptying study.
--- NOTE | ~2021-11-26 | XR_ITS ---
EXAMINATION: XR BILATERAL KNEE CLINICAL INFORMATION: Pain. COMPARISON: None. TECHNIQUE: 2 views each knee. FINDINGS: Right Knee: There is minimal loss of medial and patellofemoral compartment joint space. No loose bodies, bony erosive changes or joint effusion seen. Left Knee: Tricompartment joint space is somewhat maintained. No bony erosive changes, loose bodies or joint effusion seen. XR/XR knee LT 2V IMPRESSION: Mild degenerative changes in the medial and patellofemoral compartment right knee without loose bodies or joint effusion. Unremarkable left knee exam.
--- NOTE | ~2021-11-26 | XR_ITS ---
EXAMINATION: XR BILATERAL KNEE CLINICAL INFORMATION: Pain. COMPARISON: None. TECHNIQUE: 2 views each knee. FINDINGS: Right Knee: There is minimal loss of medial and patellofemoral compartment joint space. No loose bodies, bony erosive changes or joint effusion seen. Left Knee: Tricompartment joint space is somewhat maintained. No bony erosive changes, loose bodies or joint effusion seen. XR/XR knee RT 2V IMPRESSION: Mild degenerative changes in the medial and patellofemoral compartment right knee without loose bodies or joint effusion. Unremarkable left knee exam.
== END ==
LOC: HO.NUCMED 07:56
PROVIDERS: Visit Provider Nurse Practitioner
DX: K30 Functional dyspepsia (principal); R11.2 Nausea with vomiting, unspecified; R30.0 Dysuria; M25.561 Pain in right knee; M25.562 Pain in left knee
CPT/HCPCS: 73560; 78264; A9541

== ENCOUNTER → 2021-12-18 12:53 | Outpatient (BNVA) | payer OTHER, SELFPAY | PROVIDERS: PCP Internal Medicine; Visit Provider Nurse Practitioner | DX: K21.9 Gastro-esophageal reflux disease without esophagitis (principal); K59.04 Chronic idiopathic constipation; K30 Functional dyspepsia | CPT/HCPCS: 99212 ==

== ENCOUNTER → 2022-05-11 16:01 | Outpatient (BNVA) | payer OTHER, SELFPAY | PROVIDERS: PCP Internal Medicine; Visit Provider Nurse Practitioner | DX: K21.9 Gastro-esophageal reflux disease without esophagitis (principal); K59.04 Chronic idiopathic constipation; K30 Functional dyspepsia; B37.9 Candidiasis, unspecified; Z79.899 Other long term (current) drug therapy | CPT/HCPCS: 99212 ==

== ENCOUNTER 2022-05-24 15:15 | Outpatient (REF) | payer OTHER, SELFPAY ==
--- NOTE | ~2022-05-24 | MM_ITS ---
EXAMINATION: MM DIAGNOSTIC DIGITAL BREAST TOMOSYNTHESIS, BILATERAL CLINICAL INFORMATION: Due for yearly. Remote history reduction mammoplasty over 15 years ago. Follow-up 2 probable benign findings right breast initially noted at baseline imaging, asymmetric density posterior medial and fine calcifications upper anterior. TC score 16%. COMPARISON: Mammography: 04/13/2021, 09/11/2020, 08/21/2020 (baseline, BI-RADS 0). TECHNIQUE: Digital breast tomosynthesis is performed in both the craniocaudal and mediolateral oblique views along with computer-aided detection (CAD). Synthesized 2D images are generated from the tomosynthesis. Additional views are obtained: Magnification right CC, magnification right ML. FINDINGS: There are scattered areas of fibroglandular density (ACR BI-RADS breast composition Category b). Parenchymal pattern is similar to prior exams. There is minor scarring consistent with the history remote reduction mammoplasty. The axilla are unremarkable. There is no developing density or interval architectural abnormality or abnormal calcifications. Small asymmetric density posterior medial right breast is stable to decreased. Some fine calcifications anterior upper right breast are also stable. Right breast findings will be reassessed again at next bilateral annual mammography to conclude long-term surveillance. Results are provided to the patient at time of visit by the technologist. MM/MM tomosynthesis diagnostic BI IMPRESSION: No significant changes from prior studies. ASSESSMENT: BI-RADS 3: Probably Benign RECOMMENDATION: Diagnostic mammography to conclude long-term surveillance at next bilateral annual mammography, due in 12 months. This patient's information was entered into a reminder system with a target due date for their next mammogram.
== END 2022-05-24 15:16 | disposition home or self-care (01) ==
LOC: HO.MAMMO 15:15
PROVIDERS: PCP Internal Medicine; Visit Provider Internal Medicine
DX: R92.1 Mammographic calcification found on diagnostic imaging of breast (principal)
CPT/HCPCS: 77062; 77066

== ENCOUNTER 2022-12-02 01:41 | Emergency (ER) | payer OTHER, SELFPAY ==
[2022-12-02 01:45] VITALS: BP 122/77; PULSE 93; RESP 20; TEMP 37.1; O2SAT 97; BMI 45.7
[2022-12-02 04:22] VITALS: BP 131/74; PULSE 86; RESP 18; TEMP 36.7; O2SAT 97
--- NOTE | 2022-12-02 04:23 | PC.NURSE ---
Patient complaint of abcess/boil pain. Patient provided with warm packs while waiting for the doctor.
--- NOTE | 2022-12-02 06:12 | ED.SKABFB ---
HPI - Skin/Abscess/Foreign Bdy General Chief complaint: Skin/Abscess/Foreign Body Stated complaint: skin/abscess Time Seen by Provider: 12/02/22 05:52 Source: patient Mode of arrival: ambulatory History of Present Illness HPI narrative: 47-year-old female who reports 2 weeks of left labial abscess that has become increasingly painful. Patient states that neither her primary care provider or her instructional facilitator will Jay these when they occur. Related Data Home Medications Medication Instructions Recorded Confirmed clonazepam 0.5 mg tablet 0.5 mg PO BID 12/06/19 04/06/21 duloxetine 20 mg capsule,delayed 20 mg PO DAILY 05/11/22 release trazodone 50 mg tablet 50 mg PO BEDTIME 05/11/22 Previous Rx's Medication Instructions Recorded fexofenadine 180 mg tablet 180 mg PO DAILY 90 days #90 tabs 04/06/21 ([facility]) degyvbit-lwpccajqz-oqrbxjjdc 3.5 4 drp otic (ear) left Q8H 10 days 04/06/21 mg/mL-10,000 unit/mL-1 % ear #10 mL solution naproxen 500 mg tablet 500 mg PO BID PRN pain 10 days #20 07/15/21 tabs ferrous sulfate 325 mg (65 mg 325 mg PO DAILY #30 tabs 08/03/21 iron) tablet fluconazole 150 mg tablet 150 mg PO ONCE #1 tab 08/25/21 ondansetron 4 mg disintegrating 4 mg PO Q6H PRN nausea and 11/06/21 tablet vomiting 10 days #20 tabs duloxetine 60 mg capsule,delayed 60 mg PO DAILY 30 days #30 caps 12/01/21 release gabapentin 600 mg tablet 600 mg PO TID 30 days #90 tabs 12/01/21 clonidine HCl 0.1 mg tablet 0.1 mg PO BEDTIME #90 tabs 03/23/22 Zyrtec 10 mg tablet (cetirizine) 10 mg PO DAILY #90 tabs 04/18/22 famotidine 40 mg tablet (Pepcid) 40 mg PO BEDTIME #30 tabs 05/11/22 linaclotide 290 mcg capsule 290 mcg PO QAM 30 days #30 caps 05/11/22 (Linzess) nystatin 100,000 unit/gram topical 1 appl topical QID #60 grams 05/11/22 powder omeprazole 40 mg capsule,delayed 40 mg PO DAILY 30 days #30 caps 05/11/22 release simethicone 180 mg capsule 180 mg PO .tidac 30 days #90 caps 05/11/22 montelukast 10 mg tablet 10 mg PO DAILY 3 months #90 tabs 07/06/22 albuterol sulfate 90 mcg/actuation 1 puff inhalation Q4H PRN for 09/29/22 aerosol inhaler (Ventolin HFA) wheezing #18 ea metoclopramide HCl 10 mg tablet 10 mg PO QIDACHS #120 tabs 11/18/22 (Reglan) albuterol sulfate 2.5 mg/3 mL 2.5 mg (3 mL) inhalation Q4H PRN 11/19/22 (0.083 %) solution for nebulization shortness of breath or wheezing 3 months #180 mL fluticasone propionate 110 1 puff inhalation BID #3 ea 11/19/22 mcg/actuation HFA aerosol inhaler (Flovent HFA) Allergies Allergy/AdvReac Type Severity Reaction Status Date / Time pollen extracts [POLLEN] Allergy Mild ITCHY EYES Verified 12/02/22 01:45 GRASS Allergy Mild ITCHY EYES Uncoded 12/02/22 01:45 mold Allergy Mild Unknown Uncoded 12/02/22 01:45 Review of Systems Review of Systems: Pertinent positives and negatives as stated in HPI [facility] Past Medical History Source: nursing notes reviewed Medical History Hx of endometriosis Pelvic pain Constipation Precancerous changes of the cervix Pre-diabetes H/O one miscarriage Helicobacter pylori (H. pylori) HTN (hypertension) Depression Surgical History History of esophagogastroduodenoscopy (EGD) Hx of colonoscopy History of bilateral tubal ligation History of tonsillectomy Hx of bilateral breast reduction surgery Family History Family History Father Schizophrenia Chronic mental illness HTN (hypertension) Mother Alcoholic Maternal Aunt Uterine cancer Breast cancer Sister Depression Brother No problems noted. Brother No problems noted. Brother No problems noted. Son No problems noted. Paternal Aunt Breast cancer Social History Social History Housing: Apartment Alcohol intake: current Alcohol intake frequency: holidays/special occasions only Patient Tobacco Use Status: Current everyday Tobacco user Tobacco use type: Cigarette Cigarette Packs Per Day: 1 Smoked in Last 30 Days: No e-Cigarette/Vaping Use: Never Used Second Hand Smoke Exposure: No Use of substances other than those prescribed or required for medical reasons: No Advance Directives: No Advance Directives Information Provided: No Patient : No service: No Current occupational status: disabled Sexual orientation: Straight/Heterosexual Gender identity: Female Cognitive needs: Yes (cane) Hearing needs: No Vision needs: Yes (glasses ) Physical Exam Vital Signs: Vital Signs: Last Vital Signs Temp 98.1 F 12/02/22 04:22 Pulse 76 12/02/22 07:52 Resp 18 12/02/22 07:52 BP 130/70 12/02/22 07:52 Pulse Ox 97 12/02/22 04:22 O2 Del Method Room Air 12/02/22 04:22 BMI result Body Mass Index 45.7 VITAL SIGNS: Reviewed. GENERAL: Well developed, well nourished, in no acute distress. HEAD: Normocephalic/atraumatic EYES: PERRLA, EOMI EARS: Ext canals without abnormality LUNGS: Normal breath sounds. No adventitious sounds or accessory muscle use. SpO2<97> CARDIOVASCULAR: Regular rate and rhythm without noted murmurs ABDOMEN: Soft, non-tender, non-distended with bowel sounds. : [facility] there is a 2 cm firm area noted to the left labia minimal fluctuance appreciated and no erythema. MUSCULOSKELETAL: No tenderness, deformities, or effusions noted on gross inspection. EXTREMITIES: No cyanosis, clubbing or edema. SKIN: Inspection of the skin reveals no rashes NEUROLOGIC: Alert and oriented x 4. Strength and sensation to light touch were grossly intact x 4. Medications Administered Discontinued Medications Generic Name Dose Route Start Last Admin Trade Name Freq PRN Reason Stop Dose Admin Acetaminophen 975 mg 12/02/22 07:25 12/02/22 07:53 Acetaminophen 325 Mg Tablet PO 12/02/22 07:26 975 mg ONCE ONE Administration Ibuprofen 600 mg 12/02/22 07:25 12/02/22 07:54 Ibuprofen 600 Mg Tablet PO 12/02/22 07:26 600 mg ONCE ONE Administration Medical Decision Making Medical Decision Making MDM Narrative: 47-year-old female with possible abscess at the left labia but concern for any drainable collection given firmness. Incision and drainage was performed by KAREN Agee with trace. The material but otherwise minimal fluid drained. Differential Diagnosis Differential Diagnoses: The differential diagnosis associated with the presentation includes Please see the discussion above Admission/Observation Consideration of admission/observation: Escalation of care including admission/observation considered Please see the discussion above Procedures Abscess I/D Site: other (left labia) Side (if applicable): left Local Anesthetic: lidocaine 1% Amount of anesthesia used (mL): 0.5 Technique: incised with blade Sent for culture/gram staining?: No Irrigation: Yes Packing used?: none Complications: pain and bleeding Discharge Plan Discharge Clinical Impression: Abscess of labia Patient Disposition: Home, Self-Care Instructions: Abscess (ED), Incision and Drainage (ED) Additional Instructions: 1. Recommend velv-aov-zuwstqi Tylenol/ibuprofen as needed for pain control. 2. Recommend that you continue with Sitz baths with warm water to help promote softening and removal of remaining infection. 3. Please follow-up with primary care doctor. Return to the ER for any worsening symptoms. Prescriptions: No Action fluconazole 150 mg tablet 150 mg PO ONCE Qty: 1 0RF gabapentin 600 mg tablet 600 mg PO TID 30 Days Qty: 90 0RF duloxetine 60 mg capsule,delayed release(DR/EC) 60 mg PO DAILY 30 Days Qty: 30 0RF clonidine HCl 0.1 mg tablet 0.1 mg PO BEDTIME Qty: 90 0RF cetirizine [Zyrtec] 10 mg tablet 10 mg PO DAILY Qty: 90 0RF montelukast 10 mg tablet 10 mg PO DAILY 90 Days Qty: 90 1RF albuterol sulfate [Ventolin HFA] 90 mcg/actuation HFA aerosol inhaler 1 puff inhalation Q4H PRN (Reason: for wheezing) Qty: 18 2RF metoclopramide HCl [Reglan] 10 mg tablet 10 mg PO QIDACHS Qty: 120 6RF Rx Instructions: Provider aware of possible interactions and is monitoring albuterol sulfate 2.5 mg /3 mL (0.083 %) solution for nebulization 2.5 mg inhalation Q4H PRN (Reason: shortness of breath or wheezing) 90 Days Qty: 180 3RF Flovent HFA 110 mcg/actuation HFA aerosol inhaler 1 puff inhalation BID Qty: 3 3RF naproxen 500 mg tablet 500 mg PO BID PRN (Reason: pain) 10 Days Qty: 20 0RF xoygyttl-kmaimfrlo-RB 3.5-10,000-1 mg/mL-unit/mL-% solution 4 drp otic (ear) left Q8H 10 Days Qty: 10 0RF fexofenadine [[facility]] 180 mg tablet 180 mg PO DAILY 90 Days Qty: 90 3RF clonazepam 0.5 mg tablet 0.5 mg PO BID ondansetron 4 mg tablet,disintegrating 4 mg PO Q6H PRN (Reason: nausea and vomiting) 10 Days Qty: 20 0RF trazodone 50 mg tablet 50 mg PO BEDTIME duloxetine 20 mg capsule,delayed release(DR/EC) 20 mg PO DAILY omeprazole 40 mg capsule,delayed release(DR/EC) 40 mg PO DAILY 30 Days Qty: 30 6RF simethicone 180 mg capsule 180 mg PO .tidac 30 Days Qty: 90 6RF Rx Instructions: after meals famotidine [Pepcid] 40 mg tablet 40 mg PO BEDTIME Qty: 30 6RF Linzess 290 mcg capsule 290 mcg PO QAM 30 Days Qty: 30 6RF nystatin 100,000 unit/gram powder 1 appl topical QID Qty: 60 1RF ferrous sulfate 325 mg (65 mg iron) tablet 325 mg PO DAILY Qty: 30 6RF Referrals: Po,Jamila Miller MD [Primary Care Provider] - Interventions: ED Discharge Assessment Last Done: 12/02/22 07:58 Discharge Date/Time: 12/02/22 08:00
--- NOTE | 2022-12-02 06:41 | PC.NURSE ---
in to see patient and assess abcess of labias. Supplies set up in room for I&D.
[2022-12-02 07:52] VITALS: BP 130/70; PULSE 76; RESP 18
[2022-12-02] MEDS: Acetaminophen 325 MG TABLET 975 MG PO (07:53)
[2022-12-02] MEDS: Ibuprofen 600 MG TABLET PO (07:54)
== END 2022-12-02 08:00 | disposition home or self-care (01) ==
PROVIDERS: Emergency Provider Student in an Organized Health Care Education/Training Program; PCP Internal Medicine
DX: N76.4 Abscess of vulva (principal); R73.03 Prediabetes; I10 Essential (primary) hypertension; F17.210 Nicotine dependence, cigarettes, uncomplicated
CPT/HCPCS: 56405; 99283; 99284

== ENCOUNTER 2022-12-08 14:00 | Outpatient (AMB) | payer OTHER, SELFPAY ==
[2022-12-08 14:09] VITALS: BP 112/70; PULSE 96; O2SAT 96; BMI 42.4
--- NOTE | 2022-12-08 14:09 | A.OFFPC_ITS ---
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 Accompanied by: Friend Allergies pollen extracts [POLLEN] Allergy (Mild, Verified 12/08/22 14:15) ITCHY EYES GRASS Allergy (Mild, Uncoded 12/02/22 01:45) ITCHY EYES mold Allergy (Mild, Uncoded 12/02/22 01:45) Unknown Tobacco use date assessed: 12/08/22 Dental Screening Dental Screen Date: 12/08/22 Did you have a dental visit in the last 12 months?: No Did you have a dental problem in the last 6 months where you did not have access to dental care?: No Was dental information given to patient?: Patient has dentist HPI Follow up, depression/anxiety HPI Details 47-year-old morbidly obese female smoker with hypertension and asthma coming in for follow-up. Last seen in October 2021 had some complains of bilateral knee pain and advised x-ray. Patient is here for follow-up. Review of the notes recently seen in ER for left labial abscess. This was I and D done. Patient also was seen by the gynecology 03/2022 status post the upper scopic assisted vaginal total hysterectomy and bilateral salpingo-oophorectomy March 2022. Patient also follows up with Gastroenterology for GERD, chronic idiopathic constipation on Linzess on Reglan and advised to stop dicyclomine. States that the labial abscess continues to be there and that she has a schedule with the gynecology in December. Complains of the pain still and discussed about antibiotic treatment. Patient also has anxiety and depression and asking for TYRESE-discussed about what she needs and then states complaining of back pain states 10 years low back pain when she had a fall. But September 2021 with did an x-ray revealing negative results. Advised to retest. Patient continues to smoke and discussed about the problem. [facility] Medical History (Updated 12/08/22 @ 15:04 by Jamila Carrasco MD) Low back pain Hx of endometriosis Pelvic pain Constipation Precancerous changes of the cervix Pre-diabetes H/O one miscarriage Helicobacter pylori (H. pylori) HTN (hypertension) Depression Surgical History History of esophagogastroduodenoscopy (EGD) Hx of colonoscopy History of bilateral tubal ligation History of tonsillectomy Hx of bilateral breast reduction surgery Family History Father Schizophrenia Chronic mental illness HTN (hypertension) Mother Alcoholic Maternal Aunt Uterine cancer Breast cancer Sister Depression Brother No problems noted. Brother No problems noted. Brother No problems noted. Son No problems noted. Paternal Aunt Breast cancer Social History Housing: Apartment Alcohol intake: current Alcohol intake frequency: holidays/special occasions only Patient Tobacco Use Status: Current everyday Tobacco user Tobacco use type: Cigarette Cigarette Packs Per Day: 1 e-Cigarette/Vaping Use: Never Used Second Hand Smoke Exposure: No service: No Current occupational status: disabled Sexual orientation: Straight/Heterosexual Gender identity: Female Cognitive needs: Yes (cane) Hearing needs: No Vision needs: Yes (glasses ) Female Reproductive History Menstrual Age of Menarche: 11 Questionnaire PHQ-9 Over the last 2 weeks, how often have you been bothered by any of the following problems? 1. Little interest or pleasure in doing things: several days 2. Feeling down, depressed, or hopeless: nearly every day 3. Trouble falling or staying asleep, or sleeping too much: several days 4. Feeling tired or having little energy: several days 5. Poor appetite or overeating: more than half the days 6. Feeling bad about yourself - or that you are a failure or have let yourself or your family down: not at all 7. Trouble concentrating on things, such as reading the newspaper or watching television: several days 8. Moving or speaking so slowly that other people could have noticed. Or the opposite - being so fidgety or restless that you have been moving around a lot more than usual: more than half the days 9. Thoughts that you would be better off or of hurting yourself in some way: several days Total score: 12 Source: Developed by Drs. Naun L. KirstinNat perla, Rajeev Walker and colleagues, with an educational willy from [employer]. Thrive Questionnaire Date Thrive assessed: 12/08/22 I am a: Patient What is your living situation today?: I have a steady place to live Within the past 12 months, did the food you bought not last and you didn't have the money to get more?: Never true Within the past 12 months, did you worry whether your food would run out before you got money to buy more?: Never true Do you have trouble paying for medicines?: No Do you have trouble getting transportation to medical appointments?: No Do you have trouble paying your heating and electricity bill?: No Do you have trouble taking care of your child, family member or friend?: No Do you have trouble with day-to-day activities such as bathing, preparing meals, shopping, managing finances, etc.?: No Are you currently unemployed and looking for a job?: No Are you interested in more education?: No Please select the resources that you would like help with: None Currently or been in a relationship where the following occur: no concerns reported AUDIT C Alcohol Use Questionnaire (AUDIT-C) 1. How often do you have a drink containing alcohol?: Monthly or less 2. How many drinks containing alcohol do you have on a typical day when you are drinking?: 1 or 2 3. How often do you have six or more drinks on one occasion?: Never Total Score: 1 ANGY-7 AMB Questionnaire ANGY-7 Date ANGY - 7 assessed: 12/08/22 Feeling nervous, anxious, or on edge: 3 = Nearly every day Not being able to stop or control worryin = More than half the days Worrying too much about different things: 3 = Nearly every day Trouble relaxin = Several days Being so restless that it is hard to sit still: 1 = Several days Becoming easily annoyed or irritable: 0 = Not at all Feeling afraid as if something awful might happen: 3 = Nearly every day Total ANGY-7 score (0-4 normal; 5-9 mild; 10-14 moderate; 15-21 severe): 13 Source: Developed by Nat Bentley Kurt Kroenke and colleagues, with an educational willy from [employer]. Physical exam (Primary Care) Vital Signs: Last Vital Signs Pulse 96 12/08/22 14:09 BP 112/70 12/08/22 14:09 Pulse Ox 96 12/08/22 14:09 Oxygen Delivery Method Room Air 12/08/22 14:09 BMI result Body Mass Index 42.4 Tobacco/Smoking Status: Tobacco use Status Tobacco use date assessed 12/08/22 12/08/22 14:21 Patient Tobacco Use Status Current everyday Tobacco 12/08/22 14:21 Tobacco use type Cigarette 12/08/22 14:21 e-Cigarette/Vaping Use Never Used 12/08/22 14:21 PHQ-9: PHQ-9 Score PHQ-9: Total score 12 12/08/22 14:21 Thrive Assessment: Date of Thrive Assessment Date Thrive assessed 12/08/22 12/08/22 14:21 Currently or been in a relationship where the following occur: no concerns reported Const General: alert; No acute distress Eyes Conjunctivae: conjunctivae normal Resp Auscultation: clear to auscultation bilaterally Cardio Rate: regular rate Rhythm: regular rhythm GI Inspection: Yes normal to inspection Extrem General: Yes normal to inspection and No edema Assessment and Plan Assessment & Plan (1) Tobacco abuse: Code(s): Z72.0 - Tobacco use Plan: Patient is strongly advised to stop smoking! (2) Generalized anxiety disorder: Comment: [employer] WORK[employer] therapist once a week, Counsellor AGUSTINA Aleman and has a psychiatrist Code(s): F41.1 - Generalized anxiety disorder Plan: Continuing counseling and therapy. asking for TYRESE to help at home. (3) GERD (gastroesophageal reflux disease): Code(s): K21.9 - Gastro-esophageal reflux disease without esophagitis Plan: Avoid the foods that causes that usually spicy foods, tomato products, juices, coffee, soda and foods that your sensitive to. After eating do not lie down, allow 3-4 hours before in lie down. And keep the head of bed above 30 degrees to avoid the acid from going up. (4) Chronic idiopathic constipation: Code(s): K59.04 - Chronic idiopathic constipation Plan: Patient follows up with Gastroenterology has been placed on Linzess (5) Morbid obesity: Code(s): E66.01 - Morbid (severe) obesity due to excess calories Plan: Diet and exercise (6) Abscess of labia: Code(s): N76.4 - Abscess of vulva Plan: ER visit having incision and drainage.. Antibiotic sent in and patient has a scheduled with the gynecology (7) Low back pain: Code(s): M54.50 - Low back pain, unspecified Plan: Advised patient to repeat the x-ray to see if there is any problem Orders: Orders XR lumbar spine 2-3V Today M54.50 - Low back pain, unspecified PT Evaluation and Treatment Today M54.50 - Low back pain, unspecified Medications: New amoxicillin-pot clavulanate 875-125 mg 1 tab PO BID 7 days 14 tabs 0RF N76.4 - Abscess of vulva fluconazole 150 mg PO ONCE 1 tab 0RF N76.4 - Abscess of vulva Refilled ondansetron 4 mg PO Q6H 10 days PRN 20 tabs 0RF nausea and vomiting Coding Level of Care Code Est Pt Level 4 (28570) Diagnoses Tobacco abuse Z72.0 Generalized anxiety disorder F41.1 GERD (gastroesophageal reflux disease) K21.9 Chronic idiopathic constipation K59.04 Morbid obesity E66.01 Abscess of labia N76.4 Low back pain M54.50
== END 2022-12-08 15:37 | disposition home or self-care (01) ==
PROVIDERS: PCP Internal Medicine; Visit Provider Internal Medicine
DX: F41.1 Generalized anxiety disorder (principal); E66.01 Morbid (severe) obesity due to excess calories; Z68.41 Body mass index [BMI] 40.0-44.9, adult; J45.30 Mild persistent asthma, uncomplicated; M54.50 Low back pain, unspecified; F17.210 Nicotine dependence, cigarettes, uncomplicated
CPT/HCPCS: 99214

== ENCOUNTER 2022-12-08 15:14 | Outpatient (AMB) | payer OTHER, SELFPAY ==
[2022-12-08 15:21] VITALS: BP 112/79; BMI 42.6
--- NOTE | 2022-12-08 15:21 | MHC.OFFVIS ---
Intake Vital Signs 12/08/22 15:21 Height 5 ft 2 in Weight 233 lb BMI 42.6 BP 112/79 Blood Pressure Location Rt brachial Position Sitting Intake Visit Reasons: FU CIC, GERD Intake Note: Linden presents in the office today in follow up of CIC,GERD. CC: She states that she has been having abdominal pain and bloating. She also c/o nausea, vomiting, and not eating well. Denies other GI symptoms. Dining Room Cashier Required: No Accompanied by: Self / Same As Patient Allergies pollen extracts [POLLEN] Allergy (Mild, Verified 12/08/22 14:15) ITCHY EYES GRASS Allergy (Mild, Uncoded 12/02/22 01:45) ITCHY EYES mold Allergy (Mild, Uncoded 12/02/22 01:45) Unknown HPI FU CIC, GERD HPI Details Assessment & Plan (1) Chronic idiopathic constipation: ?Code(s): K59.04 - Chronic idiopathic constipation ?Plan: She had her endometriosis surgery and a parital hyst and bladder sling. She is feeling better in terms of her abd pain. She is doing well with her bowels, but she is still having severe GERD and bloating. She wants to go back to omeprazole 40mg qam instead of the pantoprazole - we will do this. She also ran out of the simethicone, and this helps her a lot. She continues on reglan 10mt qidachs. She requests some nystatin powder for her groin, will supply as a courtesy. ROV 6 kai weeks to eval GERD. (2) GERD (gastroesophageal reflux disease): ?Code(s): K21.9 - Gastro-esophageal reflux disease without esophagitis (3) Delayed gastric emptying: ?Code(s): K30 - Functional dyspepsia (4) Meg albicans infection: ?Code(s): B37.9 - Candidiasis, unspecified ? ? ? Medications: New omeprazole 40 mg? PO DAILY 30 days 30 caps 6RF E ? ? nystatin 1 appl? topical QI D 60 grams 1RF B37.9 - Candidiasi s, unspecified ? Refilled simethicone ?? aft er meals 180 mg? PO .tidac 30 days 90 caps 6R F ? ? famotidine (Pepcid ) 40 mg? PO BEDTIME 30 tabs 6RF ? ? linaclotide (Linze ss) 290 mcg? PO QAM 30 days 30 caps 6RF C K59.04 - Chronic i diopathic constipa tion ? metoclopramide HCl (Reglan) ?? Provi fercho aware of possi ble interactions a nd is monitoring 10 mg? PO QIDACHS 120 tabs 6RF ? ? Discontinued dicyclomine ?? Dis continued Reason:? Doctor's Order 20 mg (2 x 10 mg) PO Q6H 240 caps 6R F N92.1 - Excessive and frequent menst ruation with irreg ular cycle, R10.9 - Unspecified abdo kaylah pain ? bisacodyl (D[place]cola x (bisacodyl)) ?? Discontinued Reaso n:? Doctor's Order 10 mg (2 x 5 mg) P O BEDTIME 30 days 60 tabs 6RF K59.00 - Constipat ion, unspecified ? linaclotide (Linze ss) ?? Discontinue d Reason:? Patient no longer takingC 145 mcg? PO QAM 30 caps 1RF ? ? pantoprazole (Prot abilio) ?? Discontin ued Reason:? Docto r's Order 40 mg? PO DAILY 30 days 30 tabs 6RF H K21.9 - Gastro-eso phageal reflux dis ease without esoph agitis TODAY'S VISIT She reports today because she is having nausea and vomiting again. She had called in for refill of her Zofran, but I was unable to verify whether not she was taking her Reglan which is really what we need both for her underlying constipation (which causes worst vomiting) N for functional dyspepsia. Also, she is on Cymbalta and having too many medications in the same class increases the risk for adverse effects. She is really not certain that she has been taking the Reglan as directed so she is going to go home and check this. It is also possible that we need to increase this medication. She cannot identify any other changes in medication diet changes or sick contacts that may have precipitated this recent round of vomiting. Of course this is how it has been with her historically. She continues on her Linzess and although she is not moving her bowels great she comments that she has also not been eating much and she is moving them. She also continues on her omeprazole and famotidine, her simethicone. I want her to bring all of her medications with her in a bag to her next visit so that we can be sure what she is taking. She admits that she struggles with the names as she finds them complex. Return office visit in 2 weeks. [facility] Medical History Low back pain Hx of endometriosis Pelvic pain Constipation Precancerous changes of the cervix Pre-diabetes H/O one miscarriage Helicobacter pylori (H. pylori) HTN (hypertension) Depression Surgical History History of esophagogastroduodenoscopy (EGD) Hx of colonoscopy History of bilateral tubal ligation History of tonsillectomy Hx of bilateral breast reduction surgery Family History Father Schizophrenia Chronic mental illness HTN (hypertension) Mother Alcoholic Maternal Aunt Uterine cancer Breast cancer Sister Depression Brother No problems noted. Brother No problems noted. Brother No problems noted. Son No problems noted. Paternal Aunt Breast cancer Social History Housing: Apartment Alcohol intake: current Alcohol intake frequency: holidays/special occasions only Patient Tobacco Use Status: Current everyday Tobacco user Tobacco use type: Cigarette Cigarette Packs Per Day: 1 e-Cigarette/Vaping Use: Never Used Second Hand Smoke Exposure: No service: No Current occupational status: disabled Sexual orientation: Straight/Heterosexual Gender identity: Female Cognitive needs: Yes (cane) Hearing needs: No Vision needs: Yes (glasses ) Female Reproductive History Menstrual Age of Menarche: 11 Review of Systems Const Denies fatigue, Denies fever(s), Denies night sweats, Reports poor appetite and Denies weight loss Eyes Details: glasses Reports requires corrective lenses ENT Reports Normal hearing present, Denies dental pain, Denies dysphagia, Denies hearing loss, Denies mouth pain, Denies odynophagia, Denies throat swelling, Denies tongue swelling and Reports other (Dentition adequate) Card Reports no additional complaints Resp Reports no additional complaints GI Denies abdominal pain, Denies melena, Denies bloating, Denies hematochezia, Reports constipation, Denies GI cramping, Denies dysphagia, Denies excessive flatus, Denies early satiety, Reports heartburn, Denies diarrhea, Reports nausea, Denies odynophagia, Reports vomiting and Denies hematemesis Skin/Breast Denies pruritus, Denies lesions, Denies rash and Denies jaundice Neuro Reports Normal hearing present and Denies Abnormal speech present Endo Denies fatigue Aller/Immun Denies throat swelling and Denies tongue swelling Physical Exam Vital Signs: Last Vital Signs BP 112/79 12/08/22 15:21 BMI result Body Mass Index 42.6 Const General: cooperative, no acute distress, well developed and well groomed Nutritional Appearance: well nourished and obese morbidly obese Orientation/consciousness: oriented to person, oriented to place and oriented to time Limitations: No language barrier HEENT Head: Yes normocephalic and Yes atraumatic Eyes General: appearance normal, both eyes and all related structures Pupils: Equal, round and reactive pupils present Neck Neck: Yes normal visual inspection and Yes no lymphadenopathy Thyroid: Thyroid normal Resp Effort & Inspection: normal respiratory effort and able to speak in complete sentences Auscultation: clear to auscultation bilaterally Cardio Rate: regular rate Rhythm: regular rhythm Heart sounds: Normal, physiologic split S2 sound present Peripheral pulses: radial pulses present and posterior tibial pulses present GI Inspection: No distended, Yes Abdominal panniculus present and Yes obesity Palpation (GI): Soft to palpation, nontender, no guarding, not rigid and No hepatosplenomegaly present Percussion: Yes normal to percussion Auscultation: normal bowel sounds Rectal Exam - Female: deferred Skin General skin exam: no rashes or lesions noted, turgor normal, skin not dry, no jaundice, No spider nevi and no striae Rashes: no rashes Nails: normal Neuro General: oriented to person, oriented to place and oriented to time Cranial nerves: Yes Equal, round and reactive pupils present and Yes Normal hearing present Speech: No Abnormal speech present Extrem General: Yes normal to inspection, No clubbing, No cyanosis and No edema Psych Appearance: grossly normal and well kempt Mental Status: mental status grossly normal Speech and movement: Normal speech and movement present Affect: normal affect Attitude: cooperative Thought process: Normal thought process present and not confabulating Thought content: Normal thought content present Insight: Limited insight present (Psych) Judgement: Limited judgement present (Psych) Assessment & Plan Assessment & Plan (1) Delayed gastric emptying: Code(s): K30 - Functional dyspepsia Plan: She reports today because she is having nausea and vomiting again. She had called in for refill of her Zofran, but I was unable to verify whether not she was taking her Reglan which is really what we need both for her underlying constipation (which causes worst vomiting) N for functional dyspepsia. Also, she is on Cymbalta and having too many medications in the same class increases the risk for adverse effects. She is really not certain that she has been taking the Reglan as directed so she is going to go home and check this. It is also possible that we need to increase this medication. She cannot identify any other changes in medication diet changes or sick contacts that may have precipitated this recent round of vomiting. Of course this is how it has been with her historically. She continues on her Linzess and although she is not moving her bowels great she comments that she has also not been eating much and she is moving them. She also continues on her omeprazole and famotidine, her simethicone. I want her to bring all of her medications with her in a bag to her next visit so that we can be sure what she is taking. She admits that she struggles with the names as she finds them complex. Return office visit in 2 weeks. (2) Nausea and vomiting: Code(s): R11.2 - Nausea with vomiting, unspecified (3) Chronic idiopathic constipation: Code(s): K59.04 - Chronic idiopathic constipation (4) GERD (gastroesophageal reflux disease): Code(s): K21.9 - Gastro-esophageal reflux disease without esophagitis Medications: Refilled metoclopramide HCl (Reglan) Provider aware of possible interactions and is monitoring 10 mg PO QIDACHS 120 tabs 6RF Coding Level of Care Code Est Pt Level 3 (65696) Diagnoses Delayed gastric emptying K30 Nausea and vomiting R11.2 Chronic idiopathic constipation K59.04 GERD (gastroesophageal reflux disease) K21.9
== END 2022-12-08 15:50 | disposition home or self-care (01) ==
PROVIDERS: PCP Internal Medicine; Visit Provider Nurse Practitioner
DX: K30 Functional dyspepsia (principal); R11.2 Nausea with vomiting, unspecified; K59.04 Chronic idiopathic constipation; K21.9 Gastro-esophageal reflux disease without esophagitis
CPT/HCPCS: 99213

== ENCOUNTER → 2022-12-08 15:14 | Outpatient (BNVA) | payer OTHER, SELFPAY | PROVIDERS: PCP Internal Medicine; Visit Provider Nurse Practitioner | DX: K59.04 Chronic idiopathic constipation (principal); K21.9 Gastro-esophageal reflux disease without esophagitis; K30 Functional dyspepsia; R11.2 Nausea with vomiting, unspecified | CPT/HCPCS: 99212 ==

== ENCOUNTER 2022-12-30 14:40 | Outpatient (REF) | payer OTHER, SELFPAY | END 2022-12-30 14:41 | disposition home or self-care (01) | LOC: HO.MAMMO 14:40 | PROVIDERS: PCP Internal Medicine; Visit Provider Internal Medicine | DX: Z13.89 Encounter for screening for other disorder (principal) ==

== ENCOUNTER 2023-01-20 15:43 | Outpatient (AMB) | payer OTHER, SELFPAY ==
--- NOTE | 2023-01-20 16:10 | A.OFFVIS_ITS ---
Intake Vital Signs 01/20/23 16:11 Height 5 ft 2 in Weight 224 lb BMI 41.0 BP 108/87 Blood Pressure Location Lt brachial Position Sitting Pulse 75 Intake Visit Reasons: Follow Up Intake Note: Linden presents in the office today in follow up of CIC,GERD. CC: She states that she continues having abdominal pain, abd bloating, nausea, vomiting, and not eating well. Per patient metoclopromide did not help with symptoms. Denies other GI symptoms. 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 She had called in for refill of her Zofran, but I was unable to verify whether not she was taking her Reglan which is really what we need both for her underlying constipation (which causes worst vomiting) N for functional dyspepsia. Also, she is on Cymbalta and having too many medications in the same class increases the risk for adverse effects. She is really not certain that she has been taking the Reglan as directed so she is going to go home and check this. It is also possible that we need to increase this medication. She cannot identify any other changes in medication diet changes or sick contacts that may have precipitated this recent round of vomiting. Of course this is how it has been with her historically. She continues on her Linzess and although she is not moving her bowels great she comments that she has also not been eating much and she is moving them. She also continues on her omeprazole and famotidine, her simethicone. I want her to bring all of her medications with her in a bag to her next visit so that we can be sure what she is taking. She admits that she struggles with the names as she finds them complex. Return office visit in 2 weeks. (2) Nausea and vomiting: Code(s): R11.2 - Nausea with vomiting, unspecified (3) Chronic idiopathic constipation: Code(s): K59.04 - Chronic idiopathic constipation (4) GERD (gastroesophageal reflux diseas e): Code(s): K21.9 - Gastro-esophageal reflux disease without esophagitis Medications: Refilled metoclopramide HCl (Reglan) Provi fercho aware of possi ble interactions a nd is monitoring 10 mg PO QIDACHS 120 tabs 6RF CORRESPONDENCE On 01/05/23 @ 14:27 Moses Goff Wrote To EliseoMay We do have some cancellations this Tuesday01/07/23. I called Pt and LVM offering sooner appt for this Tuesday and requesting a call back. On 01/05/23 @ 09:21 Cyndee Gomes Wrote To Moses Goff V I really need her to come in and see me as soon as possible to see what is going on with her. She see if she has any openings sooner than her next appointment? On 12/27/22 @ 14:26 Eve Koch Wrote To EliseoMay Patient called and would like to know if we can increase the Metoclopramide. Please advise! On 11/18/22 @ 10:20 Laila Campo Wrote To Laila Campo I informed patient of below and she requested I send refill. I sent refill to [facility]. Laila Campo completed item. On 11/18/22 @ 10:14 Cyndee Gomes Wrote To Laila Campo Please advise her that the metoclopramide/Reglan is to prevent her nausea and encourage her to take this instead of this Zofran. The Reglan also addresses the constipation so it does much more to prevent the underlying disease in the Zofran. On 11/18/22 @ 08:29 Laila Campo Wrote To EliseoMay patient states hasn't been taking the Reglan for some time now. I asked her how long she states she hasn't been able to take her meds because she is always nauseous. I informed her Reglan and Zofran cannot be taken together due to increase risk of serotonin syndrome. patient still requested the Zofran. On 11/18/22 @ 08:25 Cyndee Gomes Wrote To Laila Campo IS SHE STILL TAKING the Reglan? We really should take Zofran or Reglan together because it increases the risk of serotonin syndrome. Please advise. On 11/17/22 @ 10:09 Laila Campo Wrote To EliseoMay patient requesting refill on zofran. patient has f/u 12/08. please advise On 11/17/22 @ 09:06 Ana Middleton Wrote To Laila Campo looking for refill for her nausea TODAY'S VISIT She has been taking the metoclopramide 2 tabs in the morning and 2 at night because she does not eat much breakfast. However she still having nausea particularly mid day and I think this is because of the short action of the metoclopramide. We are going to give her 2 more tabs so she will bad a total of 60 mg a day to use in the middle of the day. I did explain that sometimes if you break up how you take them it can more closely mimic the natural movement of the GI system and may be more helpful.. She has had no adverse effects taking the medication and no signs of serotonin syndrome with regards to her Cymbalta. She was taking copious amounts of this Zofran in the past which I have stopped and this also did not seem to interact poorly with her psychiatric medications. She continues on her Linzess 290 but except for 1 episode of having fecal urgency a near incontinence she does not move her bowels well and the stools are hard with incomplete evacuation. We are going to add some bisacodyl at bedtime 1-2 tablets and see if we can titrate to make this better. I am hoping that the nausea is related to incomplete evacuation of the bowels. Her thyroid in the past has been low normal in terms of TSH so does not appear that hypothyroidism is contributing to the constipation. She is of age for colonoscopy screening for colon cancer, and has not had one, and I think an EGD would be prudent as well to explore her ongoing nausea and vomiting. She is agreeable to this. To review she has had an unremarkable gastric emptying study (although there was some question is whether she was taking regular not) and unremarkable CT with no sign of gallstones or other abdominal pathology, unremarkable lab work. For while we thought that the nausea was related to her severe fibroid disease and endometriosis but this has been since addressed so it does not seem to be contributing factor. She also suffers from migraine so it is uncertain whether this has some impact. There are no prior problems with anesthesia or sedation. She has asthma that tends to flare when she has allergies but otherwise is controlled and no cardiac problems. There are no infectious disease problems. There is no known family history of colon cancer or polyps. ROV early February to evaluate the effect of the bisacodyl along with the Linzess 290. PFSH Medical History Low back pain Hx of endometriosis Pelvic pain Constipation Precancerous changes of the cervix Pre-diabetes H/O one miscarriage Helicobacter pylori (H. pylori) HTN (hypertension) Depression Surgical History History of esophagogastroduodenoscopy (EGD) Hx of colonoscopy History of bilateral tubal ligation History of tonsillectomy Hx of bilateral breast reduction surgery Family History Father Schizophrenia Chronic mental illness HTN (hypertension) Mother Alcoholic Maternal Aunt Uterine cancer Breast cancer Sister Depression Brother No problems noted. Brother No problems noted. Brother No problems noted. Son No problems noted. Paternal Aunt Breast cancer Social History Housing: Apartment Alcohol intake: current Alcohol intake frequency: holidays/special occasions only Comment: cramping Patient Tobacco Use Status: Current everyday Tobacco user Tobacco use type: Cigarette Cigarette Packs Per Day: 1 e-Cigarette/Vaping Use: Never Used Second Hand Smoke Exposure: No service: No Current occupational status: disabled Sexual orientation: Straight/Heterosexual Gender identity: Female Cognitive needs: Yes (cane) Hearing needs: No Vision needs: Yes (glasses ) Female Reproductive History Menstrual Age of Menarche: 11 Review of Systems Const Denies fatigue, Denies fever(s), Reports headache(s), Denies night sweats, Denies poor appetite and Denies weight loss Eyes Details: Glasses Reports requires corrective lenses ENT Reports Normal hearing present, Denies dental pain, Denies dysphagia, Reports headache(s), Denies hearing loss, Denies mouth pain, Denies odynophagia, Denies throat swelling, Denies tongue swelling and Reports other (Dentition adequate) Card Reports no additional complaints Resp Reports no additional complaints GI Denies abdominal pain, Denies melena, Reports bloating, Denies hematochezia, Reports constipation, Denies GI cramping, Denies dysphagia, Denies excessive flatus, Denies early satiety, Reports heartburn, Denies diarrhea, Reports nausea, Denies odynophagia, Reports vomiting and Denies hematemesis Skin/Breast Denies pruritus, Denies lesions, Denies rash and Denies jaundice Neuro Reports Normal hearing present, Denies Abnormal speech present and Reports headache(s) Endo Denies fatigue Aller/Immun Denies throat swelling and Denies tongue swelling Physical Exam Vital Signs: Last Vital Signs Pulse 75 01/20/23 16:11 BP 108/87 01/20/23 16:11 BMI result Body Mass Index 41.0 Const General: cooperative, no acute distress, well developed and well groomed Nutritional Appearance: well nourished and obese morbidly obese Orientation/consciousness: oriented to person, oriented to place and oriented to time Limitations: No language barrier HEENT Head: Yes normocephalic and Yes atraumatic Eyes General: appearance normal, both eyes and all related structures Pupils: Equal, round and reactive pupils present Neck Neck: Yes normal visual inspection and Yes no lymphadenopathy Thyroid: Thyroid normal Resp Effort & Inspection: normal respiratory effort and able to speak in complete sentences Auscultation: clear to auscultation bilaterally Cardio Rate: regular rate Rhythm: regular rhythm Heart sounds: Normal, physiologic split S2 sound present Peripheral pulses: radial pulses present and posterior tibial pulses present GI Inspection: No distended, Yes Abdominal panniculus present and Yes obesity Palpation (GI): Soft to palpation, nontender, no guarding, not rigid and No hepatosplenomegaly present Percussion: Yes normal to percussion Auscultation: normal bowel sounds Rectal Exam - Female: deferred Skin General skin exam: no rashes or lesions noted, turgor normal, skin not dry, no jaundice, No spider nevi and no striae Rashes: no rashes Nails: normal Neuro General: oriented to person, oriented to place and oriented to time Cranial nerves: Yes Equal, round and reactive pupils present and Yes Normal hearing present Speech: No Abnormal speech present Extrem General: Yes normal to inspection, No clubbing, No cyanosis and No edema Psych Appearance: grossly normal and well kempt Mental Status: mental status grossly normal Speech and movement: Normal speech and movement present Affect: normal affect Attitude: cooperative Thought process: Normal thought process present and not confabulating Thought content: Normal thought content present Insight: Fair insight present (Psych) Judgement: Fair judgement present (Psych) Assessment & Plan Assessment & Plan (1) Chronic idiopathic constipation: Code(s): K59.04 - Chronic idiopathic constipation (2) Pre-op examination: Code(s): Z01.818 - Encounter for other preprocedural examination (3) Nausea and vomiting: Code(s): R11.2 - Nausea with vomiting, unspecified Plan She has been taking the metoclopramide 2 tabs in the morning and 2 at night because she does not eat much breakfast. However she still having nausea particularly mid day and I think this is because of the short action of the metoclopramide. We are going to give her 2 more tabs so she will bad a total of 60 mg a day to use in the middle of the day. I did explain that sometimes if you break up how you take them it can more closely mimic the natural movement of the GI system and may be more helpful.. She has had no adverse effects taking the medication and no signs of serotonin syndrome with regards to her Cymbalta. She was taking copious amounts of this Zofran in the past which I have stopped and this also did not seem to interact poorly with her psychiatric medications. She continues on her Linzess 290 but except for 1 episode of having fecal urgency a near incontinence she does not move her bowels well and the stools are hard with incomplete evacuation. We are going to add some bisacodyl at bedtime 1-2 tablets and see if we can titrate to make this better. I am hoping that the nausea is related to incomplete evacuation of the bowels. Her thyroid in the past has been low normal in terms of TSH so does not appear that hypothyroidism is contributing to the constipation. She is of age for colonoscopy screening for colon cancer, and has not had one, and I think an EGD would be prudent as well to explore her ongoing nausea and vomiting. She is agreeable to this. To review she has had an unremarkable gastric emptying study (although there was some question is whether she was taking regular not) and unremarkable CT with no sign of gallstones or other abdominal pathology, unremarkable lab work. For while we thought that the nausea was related to her severe fibroid disease and endometriosis but this has been since addressed so it does not seem to be contributing factor. She also suffers from migraine so it is uncertain whether this has some impact. There are no prior problems with anesthesia or sedation. She has asthma that tends to flare when she has allergies but otherwise is controlled and no cardiac problems. There are no infectious disease problems. There is no known family history of colon cancer or polyps. ROV early February to evaluate the effect of the bisacodyl along with the Linzess 290. Orders: Orders EGD/[facility] Combo - GI Use Only Today R11.2 - Nausea with vomiting, unspecified, Z01.818 - Encounter for other preprocedural examination Complete Blood Count Auto Diff Today K59.04 - Chronic idiopathic constipation, R11.2 - Nausea with vomiting, unspecified, Z01.818 - Encounter for other preprocedural examination Comprehensive Met. Panel Today K59.04 - Chronic idiopathic constipation, R11.2 - Nausea with vomiting, unspecified, Z01.818 - Encounter for other preprocedural examination TSH reflex Free T4 Today K59.04 - Chronic idiopathic constipation, R11.2 - Nausea with vomiting, unspecified, Z01.818 - Encounter for other preprocedural examination Medications: New bisacodyl (Dulcolax (bisacodyl)) 10 mg (2 x 5 mg) PO BEDTIME 30 days 60 tabs 3RF K59.04 - Chronic idiopathic constipation sod sulf-pot chloride-mag sulf 1.479-0.188- 0.225 gram (Sutab) PO PER PKG DIR for colonoscopy prep 24 tabs 0RF Z01.818 - Encounter for other preprocedural examination Changed From metoclopramide HCl (Reglan) Provider aware of possible interactions and is monitoring 10 mg PO QIDACHS 120 tabs 6RF To metoclopramide HCl (Reglan) Provider aware of possible interactions and is monitoring 20 mg (2 x 10 mg) PO TID 120 tabs 6RF Refilled linaclotide (Linzess) 290 mcg PO QAM 30 days 30 caps 6RF K59.04 - Chronic idiopathic constipation omeprazole 40 mg PO DAILY 30 days 30 caps 6RF simethicone after meals 180 mg PO .tidac 30 days 90 caps 6RF ondansetron 4 mg PO Q6H 10 days PRN 20 tabs 0RF nausea and vomiting Coding Level of Care Code Est Pt Level 4 (11559) Diagnoses Chronic idiopathic constipation K59.04 Pre-op examination Z01.818 Nausea and vomiting R11.2
[2023-01-20 16:11] VITALS: BP 108/87; PULSE 75; BMI 41.0
== END 2023-01-20 16:54 | disposition home or self-care (01) ==
PROVIDERS: PCP Internal Medicine; Visit Provider Nurse Practitioner
DX: K59.04 Chronic idiopathic constipation (principal); Z01.818 Encounter for other preprocedural examination; R11.2 Nausea with vomiting, unspecified
CPT/HCPCS: 99214

== ENCOUNTER → 2023-01-20 15:43 | Outpatient (BNVA) | payer OTHER, SELFPAY | PROVIDERS: PCP Internal Medicine; Visit Provider Nurse Practitioner | DX: Z01.818 Encounter for other preprocedural examination (principal); K59.04 Chronic idiopathic constipation; K21.9 Gastro-esophageal reflux disease without esophagitis; R11.2 Nausea with vomiting, unspecified | CPT/HCPCS: 99212 ==